=== PATIENT | male | born 1950 | race Caucasian/White ===

== ENCOUNTER 2017-01-31 07:46 | Inpatient (IN) | payer MEDICARE ==
[~2017-01-31] VITALS: Ht 182.9 cm; Wt 184.4 kg
[2017-01-31] VITALS (18 sets, daily range): BP systolic 101–137; BP diastolic 51–67
[2017-01-31] MEDS ORDERED: MIRA50TA PO (09:12)
[2017-01-31] MEDS ORDERED: CARV25TA2 PO (09:12)
[2017-01-31] MEDS ORDERED: INSU100C4 SQ (09:12)
[2017-01-31] MEDS ORDERED: INSU100I32 SQ (09:12)
[2017-01-31] MEDS ORDERED: METF10002 PO (09:12)
[2017-01-31] MEDS ORDERED: ASPI81TA2 PO (09:12)
[2017-01-31] MEDS ORDERED: DRON400T PO (09:12)
[2017-01-31] MEDS ORDERED: MAG HYDROX/ALUMINUM HYD/SIMETH 30 ML ORAL.SUSP PO PRN (09:30)
[2017-01-31] MEDS ORDERED: ONDANSETRON PF 4 MG/2 ML VIAL. IV PRN (09:30)
[2017-01-31] MEDS ORDERED: CALCIUM CARBONATE 500 MG TAB.CHEW PO PRN (09:30)
[2017-01-31] MEDS ORDERED: OXYCODONE IR 5 MG TABLET. PO PRN (09:30)
[2017-01-31] MEDS ORDERED: MORPHINE SULFATE 2 MG/ML DISP.SYRIN. IV PRN (09:30)
[2017-01-31] MEDS: IV NORMAL SALINE 1000ML BAG 1,000 ML IV SCH ×2 (09:44→17:24)
[2017-01-31] MEDS: MIRABEGRON 25 MG TAB.ER.24H PO SCH (10:00)
[2017-01-31] MEDS: DRONEDARONE HCL 400 MG TABLET PO SCH ×2 (10:00→21:00)
--- NOTE | 2017-01-31 10:09 | EKG ---
[facility] [address] [place] [address] Test Date: 2017-01-31 Test Time: 10:05:54 Pat Name: NAWAF HUBBARD Department: Room: 115 1 Gender: M Nurse Technician: HERO : 1950 Requested By: KEKE WOODRUFF Order Number: [id number] Reading MD: Measurements Intervals [place] Rate: 101 P: 45 VA: 238 QRS: -9 QRSD: 82 T: 96 QT: 338 QTc: 439 Interpretive Statements SINUS TACHYCARDIA PROLONGED VA INTERVAL LEFTWARD AXIS T ABNORMALITY IN HIGH LATERAL LEADS ABNORMAL ECG RI6.01 No previous ECG available for comparison
--- NOTE | 2017-01-31 10:20 | PDOC1 ---
History and Physical Date of Admission Date of Admission DATE: 01/31/17 TIME: 10:06 Identification/Chief Complaint Chief Complaint bloody diarrhea this AM History of Present Illness History of Present Illness 66 y.o male who has been going to for wound care of his legs, was transferred here from [facility] of active gI bleed with hemodynamic instability, BRBPR today, lots per pt, with dizziness and lightheadedness. Hgb down to 7.5 from 11,2 per rehab therapist at [place],. On antihypertensives at home and anti arrhythmics along with ASA 325, Some abd cramps too. Currently being treated for c diff (not his first episode). on PO vanc. 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, thoughts of transferring to but family and pt agreeable to stay here now Past Medical History Cardiovascular: AFIB, HTN Infectious disease: Other (c diff) Past Surgical History Past Surgical History: No pertinent history Family History Family History: No Significant Social History Smoke: No ALCOHOL: none Drugs: None Current Problem List Problem List Problems Medical Problems: (1) GI bleed Status: Acute Problems: Current Medications Current Medications Current Medications Ondansetron HCl (Zofran) 4 mg PRN Q6HRS PRN IV NAUSEA/VOMITING; Start 01/31/17 at 09:30 Al Hydroxide/Mg Hydroxide (Mylanta Plus Xs) 30 ml PRN Q3HRS PRN PO HEARTBURN / GAS; Start 01/31/17 at 09:30 Calcium Carbonate/ Glycine (Tums) 500 mg PRN Q3HRS PRN PO UPSET STOMACH; Start 01/31/17 at 09:30 Zolpidem Tartrate (Ambien) 5 mg PRN QHS PRN PO INSOMNIA, MAY REPEAT IN 1HR; Start 01/31/17 at 09:30 Oxycodone HCl (Roxicodone) 5 mg PRN Q3HRS PRN PO BREAKTHROUGH PAIN; Start 01/31 at 09:30 Morphine Sulfate 1 mg 1 mg PRN Q1HR PRN IV PAIN; Start 01/31/17 at 09:30 Sodium Chloride (Iv Sodium Chloride 0.9% 1000ml Bag) 1,000 ml @ 100 mls/hr Q10H IV Last administered on 01/31/17t 09:44; Start 01/31/17 at 09:30 Pantoprazole Sodium (Protonix Vial) 40 mg DAILYAC IVP ; Start 01/31/17 at 10:00 Dronedarone (Multaq) 400 mg BID PO ; Start 01/31/17 at 10:00 Mirabegron (Myrbetriq) 50 mg DAILY PO ; Start 01/31/17 at 10:00 Vancomycin HCl 125 mg 125 mg [id number] PO ; Start 01/31/17 at 13:00; Status UNV Metronidazole (FLAGYL 500Mmg PREMIX) 100 ml @ 100 mls/hr Q8HRS IV ; Start 01/31 at 14:00; Status UNV Active Scripts Active Reported Basaglar Kwikpen U-100 (Insulin Glargine,Hum.rec.anlog) 100 Unit/1 Ml Insuln.pen 35 Unit SQ HS Novolog (Insulin Aspart) 100 Unit/1 Ml Cartridge 35 Unit SQ TIDAC Aspirin 81 Mg Tab.chew 1 Tab PO DAILY Multaq (Dronedarone Hcl) 400 Mg Tablet 1 Tab PO BID Myrbetriq (Mirabegron) 50 Mg Tab.er.24h 50 Mg PO DAILY Carvedilol 25 Mg Tablet 80 Tab PO DAILY Metformin Hcl 1,000 Mg Tablet 1 Tab PO BID Allergies Allergies: Coded Allergies: I S O L A T I O N *CONTACT* (Verified Allergy, Unknown, 01/31/17) mrsa/c.diff No Known Medication Allergies (Verified Allergy, Unknown, 01/31/17) ROS Review of System dizzy, lightheaded, weak Gastrointestinal: Yes Abdominal Pain Skin: Yes Other (chronic lymphedema) Physical Exam General: No acute distress HEENT: Atraumatic, PERRLA Lungs: Clear to auscultation, Normal air movement Heart: S1S2, RRR, no thrills, no rubs, no gallops Cardiovascular: S1, S2 Breasts: Normal Abdomen: Soft, Other (hyperactive BS) Rectal Exam: not examined PELVIC: Nml ext genitalia Extremities: Other (chronic leg wounds, post inflammatory hyperpigmentation) Neuro: Normal gait, Normal speech, Strength at 5/5 X4 ext, Normal tone, Sensation intact, Cranial nerves 3-12 NL, Reflexes 2+ Psych/Mental Status: Mental status NL, Mood NL Vitals Vitals Vital Signs Date Time Temp Pulse Resp B/P Pulse Ox O2 Delivery O2 Flow Rate FiO2 01/31/17 09:33 106 20 115/53 100 Nasal Cannula 2.0 01/31/17 08:25 98.6 98.6 VTE Prophylaxis Ordered VTE Prophylaxis Devices: Contraindicated VTE Pharmacological Prophylaxi: Contraindicated Assessment/Plan Assessment/Plan 1. Active GI bleed, likely lower, difftls include GIB from Active c diff infection, diverticulosis 2. Hypotension 3. Symptomatic anemia 4. Precipitous drop in hemoglobin 5. C difficile, being treated 6. Chronic leg wounds and lymphedema 7. Morbid obesity with mild to mod PCM 8. HTN, now hypotensive 9. Arrhythmia (a fib? ) on anti arrhythmics PLAN NPO, IVF 100cc/hr GI consult Ct abd pelvis Check ESR COnt PO vanc Add IV flagyl Check stool for c dfiff for completion sake Hold ASA SCds only NO blood thinners or NSAIDs Hold antihypertensives MAy cont antiarrhythmics CBC eddy LAbs today baseline WOund care consult Hold PT/OT for now ICU admit Check coags Hold [facility] transfer - agreeable to stay CC 30 KEKE WOODRUFF MD Jan 31, 2017 10:20
[2017-01-31 10:32] LABS: BASO # 0.1 x10^3/uL (0.0-0.2); BASO % 1 % (0-3); EOS % 1 % (0-3); LYMPH # 2.3 x10^3/uL (1.0-4.8); LYMPH % 23 % (24-48); MEAN CORPUSCULAR HEMOGLOBIN 30 pg (25-35); MEAN CORPUSCULAR HGB CONC 33 g/dL (31-37); MEAN CORPUSCULAR VOLUME 89 fL (79-100); MONO % 14 % (0-9); NEUT % 62 % (31-73); PLATELET COUNT 175 x10^3/uL (140-400); RED BLOOD COUNT 2.31 x10^6/uL (4.30-5.70); RED CELL DISTRIBUTION WIDTH 14.8 % (11.5-14.5)
--- NOTE | 2017-01-31 10:34 | PDOC2 ---
GI CONSULT Reason For Consult: GI Bleed HPI: HPI: 66 y/o male w/ BMI 54 transferred from [facility] rehab. History from paper chart, staff, pt, and family. H/o atbx tx for chronic LE wounds and C Diff x 2 on PO vancomycin. Diarrhea has slowed (estimates 3 stools yesterday). Abd pain since 01/29 (mostly RLQ and LLQ). Since yesterday has passed bright red blood x 3 (concerning to [facility] staff), felt dizzy, and had some hypotension. No labs here yet, but from [facility]: Hgb 11.2 yesterday to 7.5 today, Bun 30, Cr 0.9. Recalls history of "low platelets" and GI bleed at in 2014 w/ extensive workup. Says EGD and colonoscopy were normal at that time. Seems suggestion was made of small bowel etiology. Perhaps took iron for awhile but can't remember. Prior to admission at [facility], had occasional constipation. Denies reflux/heartburn or change in appetite. H/o A Fib on ASA and Multaq. Takes Tylenol PRN, denies NSAIDs. On Flagyl and vanco here, also IV PPI, CT A/ P ordered. PMH: PMH: A Fib, HTN, CHF, PAD, DM, C Diff, MRSA, h/o thrombocytopenia, back pain, depression, appendectomy FH: Family History: Cancer (lung) Social History: Smoke: No ALCOHOL: none Drugs: None ROS: GEN: Denies fevers, chills, sweats HEENT: Denies blurred vision, sore throat CV: Denies chest pain RESP: +shortness of air GI: Per HPI : Denies hematuria, dysuria ENDO: Denies weight changes NEURO: +dizziness MSK: +weakness SKIN: Denies jaundice, pruritus VItals: Vitals: Vital Signs Date Time Temp Pulse Resp B/P Pulse Ox O2 Delivery O2 Flow Rate FiO2 01/31/17 09:33 106 20 115/53 100 Nasal Cannula 2.0 01/31/17 08:25 98.6 98.6 Allergies: Coded Allergies: I S O L A T I O N *CONTACT* (Verified Allergy, Unknown, 01/31/17) mrsa/c.diff No Known Medication Allergies (Verified Allergy, Unknown, 01/31/17) Medications: Current Medications Medications (Trade) Dose Ordered Sig/Ricky Route PRN Reason Start Time Stop Time Status Last Admin Dose Admin Sodium Chloride (Iv Sodium Chloride 0.9% 1000ml Bag) 1,000 ml @ 100 mls/hr Q10H IV 01/31/17 09:30 01/31/17 09:44 PE: GEN: NAD, obese HEENT: Atraumatic, PERRL LUNGS: clear anteriorly, nasal cannula HEART: tachycardic ABD: NABS, S/ND, tender RLQ, LLQ, some LUQ EXTREMITY: chronic wounds, hyperpigmentation NEURO/PSYCH: A & O 3 A/P: A/P: Hematochezia, anemia w/ hypotension, dizziness -onset w/i last 24 hours, Hgb 11.2 to 7.5 at [facility] rehab, transferred here -takes ASA for A Fib -CT A/P ordered C Diff -second occurrence, on PO vanco w/ improvement of diarrhea H/o GI bleed, thrombocytopenia -@ [facility] in 2014, reportedly no source identified on EGD or colonoscopy -plt count DM, PAD w/ chronic LE wounds -- Will request recs from [facility], review w/ Dr. Sharma. ?ischemic colitis w/ C Diff, other comorbidities Continue medical/supportive care, await CT. If unrevealing, consider bleeding scan. JENA CISNEROS Jan 31, 2017 10:34
[2017-01-31 10:43] LABS: HEMOGLOBIN 6.8 g/dL (13.0-17.5)
[2017-01-31 10:44] LABS: HEMATOCRIT 20.6 % (39.0-53.0)
[2017-01-31 10:58] LABS: INR 1.4 (0.8-1.1); PROTHROMBIN TIME PATIENT 16.5 SEC (11.7-14.0)
[2017-01-31 11:10] LABS: ALBUMIN 1.9 g/dL (3.4-5.0); CALCIUM 7.7 mg/dL (8.5-10.1); CREATININE 0.9 mg/dL (0.7-1.3); DIRECT BILIRUBIN 0.1 mg/dL (0.0-0.2); GFR 84.4; MAGNESIUM 1.7 mg/dL (1.8-2.4); PHOSPHORUS 2.6 mg/dL (2.6-4.7); TOTAL BILIRUBIN 0.5 mg/dL (0.2-1.0); TOTAL PROTEIN 5.3 g/dL (6.4-8.2)
[2017-01-31 11:12] LABS: POTASSIUM 5.3 mmol/L (3.5-5.1)
[2017-01-31] MEDS: VANCOMYCIN 125 MG/2.5 ML ORAL SOLUTION. PO SCH ×4 (11:48→21:40)
[2017-01-31] MEDS: PANTOPRAZOLE IV PUSH 40 MG VIAL. IVP SCH (11:48)
[2017-01-31] MEDS: METRONIDAZOLE 500mg PREMIX 100 ML IV SCH ×2 (11:48→21:40)
[2017-01-31 12:32] LABS: % BASOS 1 % (0-3); PLT ESTIMATE ADEQUATE (ADEQUATE)
[2017-01-31] MEDS ORDERED: IOHEXOL 300 MG/ML 75 ML VIAL IV ONE (13:15)
[2017-01-31] MEDS ORDERED: IOHEXOL 240 MG/ML 50ML VIAL. PO ONE (13:15)
[2017-01-31] MEDS ORDERED: CONTRAST GIVEN MC PRN ×2 (13:30→16:15)
[2017-01-31] MEDS ORDERED: IOHEXOL 350 MG/ML 100ML VIAL. IV ONE (16:00)
--- NOTE | 2017-01-31 17:28 | RAD ---
CTA of the abdomen and pelvis with and without contrast, 01/31/2017: History: Bloody stools Multidetector CT imaging was performed prior to and following an IV bolus injection of iodinated contrast material. The postcontrast scans were obtained in arterial and delayed phases. 3-D volume reconstructions of the aorta were also produced. The study is partially compromised by numerous streak artifacts related to patient size. There is no evidence of contrast extravasation in the GI tract to suggest active GI tract bleeding. There is mild calcific plaquing of the abdominal aorta and its branches. There is mild calcific plaquing at the celiac and superior mesenteric artery origins without evidence of high-grade stenosis. There is moderate plaquing at the right renal artery origin with probable moderate luminal narrowing. The left renal artery is unremarkable. A patent inferior mesenteric artery is evident. There is no evidence of aortic aneurysm. The iliac arteries are widely patent. Incidental CT findings include the presence of several moderate sized intrarenal calculi bilaterally. The largest of these lies on the left and measures 2 cm. There is renal cortical scarring. The kidneys show no evidence of obstruction. The bowel loops are not dilated. No free fluid or free air is evident in the abdomen or pelvis. IMPRESSION: 1. No evidence of active GI tract bleeding. 2. Bilateral nonobstructing intrarenal calculi. PQRS Compliance Statement: One or more of the following individualized dose reduction techniques were utilized for this examination: 1. Automated exposure control 2. Adjustment of the mA and/or kV according to patient size 3. Use of iterative reconstruction technique
[2017-02-01] VITALS (20 sets, daily range): BP systolic 90–177; BP diastolic 45–89
[2017-02-01 04:59] LABS: BASO # 0.1 x10^3/uL (0.0-0.2); BASO % 1 % (0-3); EOS % 1 % (0-3); HEMATOCRIT 21.8 % (39.0-53.0); HEMOGLOBIN 7.2 g/dL (13.0-17.5); LYMPH # 2.8 x10^3/uL (1.0-4.8); LYMPH % 31 % (24-48); MEAN CORPUSCULAR HEMOGLOBIN 30 pg (25-35); MEAN CORPUSCULAR HGB CONC 33 g/dL (31-37); MEAN CORPUSCULAR VOLUME 90 fL (79-100); MONO % 17 % (0-9); NEUT % 51 % (31-73); PLATELET COUNT 165 x10^3/uL (140-400); RED BLOOD COUNT 2.43 x10^6/uL (4.30-5.70); RED CELL DISTRIBUTION WIDTH 14.5 % (11.5-14.5); WHITE BLOOD COUNT 9.2 x10^3/uL (4.0-11.0)
[2017-02-01 05:34] LABS: CALCIUM 7.7 mg/dL (8.5-10.1); CREATININE 0.9 mg/dL (0.7-1.3); GFR 84.4; POTASSIUM 4.1 mmol/L (3.5-5.1)
[2017-02-01] MEDS: METRONIDAZOLE 500mg PREMIX 100 ML IV SCH ×3 (05:45→22:38)
[2017-02-01] MEDS: PANTOPRAZOLE IV PUSH 40 MG VIAL. IVP SCH (08:21)
[2017-02-01] MEDS: VANCOMYCIN 125 MG/2.5 ML ORAL SOLUTION. PO SCH ×3 (08:21→15:53)
[2017-02-01] MEDS: MUPIROCIN 2 % NASAL OINTMENT 22GM TUBE. NS SCH ×2 (08:21→20:56)
[2017-02-01] MEDS: DRONEDARONE HCL 400 MG TABLET PO SCH ×2 (08:22→20:56)
[2017-02-01] MEDS: IV NORMAL SALINE 1000ML BAG 1,000 ML IV SCH ×2 (08:22→15:30)
[2017-02-01] MEDS: NYSTATIN 100,000 UNIT/GM TOPICAL CREAM 15GM TUBE. TP SCH ×2 (08:22→20:56)
[2017-02-01] MEDS: MIRABEGRON 25 MG TAB.ER.24H PO SCH (08:22)
--- NOTE | 2017-02-01 09:07 | PDOC ---
PROGRESS NOTES Chief Complaint Chief Complaint 1. Active GI bleed, likely lower, difftls include GIB from Active c diff infection, diverticulosis 2. Hypotension, better 3. Symptomatic anemia 4. Precipitous drop in hemoglobin 5. C difficile, being treated 6. Chronic leg wounds and lymphedema 7. Morbid obesity with mild to mod PCM 8. HTN, now hypotensive 9. Arrhythmia (a fib? ) on anti arrhythmics History of Present Illness History of Present Illness Still some bloody stools - 3 yesterday NOne today but feels like he is about to have one HGb up to 7.2 from 6.8 after 1 pRBC BP better -systolic 130s, on NS at 100cc/hr C diff positive MRSA positive nares ESR 45 (mildly high) CTA done shows: IMPRESSION: 1. No evidence of active GI tract bleeding. 2. Bilateral nonobstructing intrarenal calculi. 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 - order pT/OT Vitals Vitals Vital Signs Date Time Temp Pulse Resp B/P Pulse Ox O2 Delivery O2 Flow Rate FiO2 02/01/17 08:00 98.9 82 19 120/50 96 Room Air 98.9 01/31/17 16:00 2.0 Physical Exam General: Alert, Oriented X3, Cooperative, No acute distress Heart: Regular rate Lungs: Clear Abdomen: Soft, Other (hyperactive BS) Extremities: Other (chronic leg wounds, post inflammatory hyperpigmentation) Skin: No rashes Labs LABS Laboratory Tests Test 01/31/17 10:20 01/31/17 11:30 01/31/17 12:16 02/01/17 04:50 White Blood Count 10.0x10^3/uL (4.0-11.0) 9.2x10^3/uL (4.0-11.0) Red Blood Count 2.31x10^6/uL (4.30-5.70) 2.43x10^6/uL (4.30-5.70) Hemoglobin 6.8g/dL (13.0-17.5) 7.2g/dL (13.0-17.5) Hematocrit 20.6% (39.0-53.0) 21.8% (39.0-53.0) Mean Corpuscular Volume 89fL (79-100) 90fL (79-100) Mean Corpuscular Hemoglobin 30pg (25-35) 30pg (25-35) Mean Corpuscular Hemoglobin Concent 33g/dL (31-37) 33g/dL (31-37) Red Cell Distribution Width 14.8% (11.5-14.5) 14.5% (11.5-14.5) Platelet Count 175x10^3/uL (140-400) 165x10^3/uL (140-400) Neutrophils (%) (Auto) 62% (31-73) 51% (31-73) Lymphocytes (%) (Auto) 23% (24-48) 31% (24-48) Monocytes (%) (Auto) 14% (0-9) 17% (0-9) Eosinophils (%) (Auto) 1% (0-3) 1% (0-3) Basophils (%) (Auto) 1% (0-3) 1% (0-3) Neutrophils # (Auto) 6.2x10^3uL (1.8-7.7) 4.6x10^3uL (1.8-7.7) Lymphocytes # (Auto) 2.3x10^3/uL (1.0-4.8) 2.8x10^3/uL (1.0-4.8) Monocytes # (Auto) 1.4x10^3/uL (0.0-1.1) 1.5x10^3/uL (0.0-1.1) Eosinophils # (Auto) 0.1x10^3/uL (0.0-0.7) 0.1x10^3/uL (0.0-0.7) Basophils # (Auto) 0.1x10^3/uL (0.0-0.2) 0.1x10^3/uL (0.0-0.2) Segmented Neutrophils % 72% (35-66) Band Neutrophils % 3% (0-9) Lymphocytes % 21% (24-48) Monocytes % 3% (0-10) Basophils % 1% (0-3) Platelet Estimate Adequate (ADEQUATE) Erythrocyte Sedimentation Rate 45 (0-15) Prothrombin Time 16.5SEC (11.7-14.0) Prothromb Time International Ratio 1.4 (0.8-1.1) Sodium Level 142mmol/L (136-145) 140mmol/L (136-145) Potassium Level 5.3mmol/L (3.5-5.1) 4.1mmol/L (3.5-5.1) Chloride Level 108mmol/L (98-107) 108mmol/L (98-107) Carbon Dioxide Level 27mmol/L (21-32) 27mmol/L (21-32) Anion Gap 7 (6-14) 5 (6-14) Blood Urea Nitrogen 33mg/dL (8-26) 23mg/dL (8-26) Creatinine 0.9mg/dL (0.7-1.3) 0.9mg/dL (0.7-1.3) Estimated GFR (Cockcroft-Gault) 84.4 84.4 Glucose Level 204mg/dL (70-99) 168mg/dL (70-99) Calcium Level 7.7mg/dL (8.5-10.1) 7.7mg/dL (8.5-10.1) Phosphorus Level 2.6mg/dL (2.6-4.7) Magnesium Level 1.7mg/dL (1.8-2.4) Total Bilirubin 0.5mg/dL (0.2-1.0) Direct Bilirubin 0.1mg/dL (0.0-0.2) Aspartate Amino Transf (AST/SGOT) 32U/L (15-37) Alanine Aminotransferase (ALT/SGPT) 30U/L (16-63) Alkaline Phosphatase 97U/L (46-116) Total Protein 5.3g/dL (6.4-8.2) Albumin 1.9g/dL (3.4-5.0) Clostridium difficile Toxin (PCR) Positive (Negative) Glucose (Fingerstick) 197mg/dL (70-99) Review of Systems Review of Systems bloody stools Abd cramps, minimal no emesis Assessment and Plan Assessmemt and Plan Problems Medical Problems: (1) GI bleed Status: Acute Problems: Comment Review of Relevant I have reviewed the following items ijeoma (where applicable) has been applied. Labs Laboratory Tests Test 01/31/17 08:45 01/31/17 10:20 01/31/17 11:30 01/31/17 12:16 Nasal Screen MRSA (PCR) Positive (Negative) White Blood Count 10.0x10^3/uL (4.0-11.0) Red Blood Count 2.31x10^6/uL (4.30-5.70) Hemoglobin 6.8g/dL (13.0-17.5) Hematocrit 20.6% (39.0-53.0) Mean Corpuscular Volume 89fL (79-100) Mean Corpuscular Hemoglobin 30pg (25-35) Mean Corpuscular Hemoglobin Concent 33g/dL (31-37) Red Cell Distribution Width 14.8% (11.5-14.5) Platelet Count 175x10^3/uL (140-400) Neutrophils (%) (Auto) 62% (31-73) Lymphocytes (%) (Auto) 23% (24-48) Monocytes (%) (Auto) 14% (0-9) Eosinophils (%) (Auto) 1% (0-3) Basophils (%) (Auto) 1% (0-3) Neutrophils # (Auto) 6.2x10^3uL (1.8-7.7) Lymphocytes # (Auto) 2.3x10^3/uL (1.0-4.8) Monocytes # (Auto) 1.4x10^3/uL (0.0-1.1) Eosinophils # (Auto) 0.1x10^3/uL (0.0-0.7) Basophils # (Auto) 0.1x10^3/uL (0.0-0.2) Segmented Neutrophils % 72% (35-66) Band Neutrophils % 3% (0-9) Lymphocytes % 21% (24-48) Monocytes % 3% (0-10) Basophils % 1% (0-3) Platelet Estimate Adequate (ADEQUATE) Erythrocyte Sedimentation Rate 45 (0-15) Prothrombin Time 16.5SEC (11.7-14.0) Prothromb Time International Ratio 1.4 (0.8-1.1) Sodium Level 142mmol/L (136-145) Potassium Level 5.3mmol/L (3.5-5.1) Chloride Level 108mmol/L (98-107) Carbon Dioxide Level 27mmol/L (21-32) Anion Gap 7 (6-14) Blood Urea Nitrogen 33mg/dL (8-26) Creatinine 0.9mg/dL (0.7-1.3) Estimated GFR (Cockcroft-Gault) 84.4 Glucose Level 204mg/dL (70-99) Calcium Level 7.7mg/dL (8.5-10.1) Phosphorus Level 2.6mg/dL (2.6-4.7) Magnesium Level 1.7mg/dL (1.8-2.4) Total Bilirubin 0.5mg/dL (0.2-1.0) Direct Bilirubin 0.1mg/dL (0.0-0.2) Aspartate Amino Transf (AST/SGOT) 32U/L (15-37) Alanine Aminotransferase (ALT/SGPT) 30U/L (16-63) Alkaline Phosphatase 97U/L (46-116) Total Protein 5.3g/dL (6.4-8.2) Albumin 1.9g/dL (3.4-5.0) Clostridium difficile Toxin (PCR) Positive (Negative) Glucose (Fingerstick) 197mg/dL (70-99) Test 02/01/17 04:50 White Blood Count 9.2x10^3/uL (4.0-11.0) Red Blood Count 2.43x10^6/uL (4.30-5.70) Hemoglobin 7.2g/dL (13.0-17.5) Hematocrit 21.8% (39.0-53.0) Mean Corpuscular Volume 90fL (79-100) Mean Corpuscular Hemoglobin 30pg (25-35) Mean Corpuscular Hemoglobin Concent 33g/dL (31-37) Red Cell Distribution Width 14.5% (11.5-14.5) Platelet Count 165x10^3/uL (140-400) Neutrophils (%) (Auto) 51% (31-73) Lymphocytes (%) (Auto) 31% (24-48) Monocytes (%) (Auto) 17% (0-9) Eosinophils (%) (Auto) 1% (0-3) Basophils (%) (Auto) 1% (0-3) Neutrophils # (Auto) 4.6x10^3uL (1.8-7.7) Lymphocytes # (Auto) 2.8x10^3/uL (1.0-4.8) Monocytes # (Auto) 1.5x10^3/uL (0.0-1.1) Eosinophils # (Auto) 0.1x10^3/uL (0.0-0.7) Basophils # (Auto) 0.1x10^3/uL (0.0-0.2) Sodium Level 140mmol/L (136-145) Potassium Level 4.1mmol/L (3.5-5.1) Chloride Level 108mmol/L (98-107) Carbon Dioxide Level 27mmol/L (21-32) Anion Gap 5 (6-14) Blood Urea Nitrogen 23mg/dL (8-26) Creatinine 0.9mg/dL (0.7-1.3) Estimated GFR (Cockcroft-Gault) 84.4 Glucose Level 168mg/dL (70-99) Calcium Level 7.7mg/dL (8.5-10.1) Laboratory Tests Test 01/31/17 10:20 01/31/17 11:30 01/31/17 12:16 02/01/17 04:50 White Blood Count 10.0x10^3/uL (4.0-11.0) 9.2x10^3/uL (4.0-11.0) Red Blood Count 2.31x10^6/uL (4.30-5.70) 2.43x10^6/uL (4.30-5.70) Hemoglobin 6.8g/dL (13.0-17.5) 7.2g/dL (13.0-17.5) Hematocrit 20.6% (39.0-53.0) 21.8% (39.0-53.0) Mean Corpuscular Volume 89fL (79-100) 90fL (79-100) Mean Corpuscular Hemoglobin 30pg (25-35) 30pg (25-35) Mean Corpuscular Hemoglobin Concent 33g/dL (31-37) 33g/dL (31-37) Red Cell Distribution Width 14.8% (11.5-14.5) 14.5% (11.5-14.5) Platelet Count 175x10^3/uL (140-400) 165x10^3/uL (140-400) Neutrophils (%) (Auto) 62% (31-73) 51% (31-73) Lymphocytes (%) (Auto) 23% (24-48) 31% (24-48) Monocytes (%) (Auto) 14% (0-9) 17% (0-9) Eosinophils (%) (Auto) 1% (0-3) 1% (0-3) Basophils (%) (Auto) 1% (0-3) 1% (0-3) Neutrophils # (Auto) 6.2x10^3uL (1.8-7.7) 4.6x10^3uL (1.8-7.7) Lymphocytes # (Auto) 2.3x10^3/uL (1.0-4.8) 2.8x10^3/uL (1.0-4.8) Monocytes # (Auto) 1.4x10^3/uL (0.0-1.1) 1.5x10^3/uL (0.0-1.1) Eosinophils # (Auto) 0.1x10^3/uL (0.0-0.7) 0.1x10^3/uL (0.0-0.7) Basophils # (Auto) 0.1x10^3/uL (0.0-0.2) 0.1x10^3/uL (0.0-0.2) Segmented Neutrophils % 72% (35-66) Band Neutrophils % 3% (0-9) Lymphocytes % 21% (24-48) Monocytes % 3% (0-10) Basophils % 1% (0-3) Platelet Estimate Adequate (ADEQUATE) Erythrocyte Sedimentation Rate 45 (0-15) Prothrombin Time 16.5SEC (11.7-14.0) Prothromb Time International Ratio 1.4 (0.8-1.1) Sodium Level 142mmol/L (136-145) 140mmol/L (136-145) Potassium Level 5.3mmol/L (3.5-5.1) 4.1mmol/L (3.5-5.1) Chloride Level 108mmol/L (98-107) 108mmol/L (98-107) Carbon Dioxide Level 27mmol/L (21-32) 27mmol/L (21-32) Anion Gap 7 (6-14) 5 (6-14) Blood Urea Nitrogen 33mg/dL (8-26) 23mg/dL (8-26) Creatinine 0.9mg/dL (0.7-1.3) 0.9mg/dL (0.7-1.3) Estimated GFR (Cockcroft-Gault) 84.4 84.4 Glucose Level 204mg/dL (70-99) 168mg/dL (70-99) Calcium Level 7.7mg/dL (8.5-10.1) 7.7mg/dL (8.5-10.1) Phosphorus Level 2.6mg/dL (2.6-4.7) Magnesium Level 1.7mg/dL (1.8-2.4) Total Bilirubin 0.5mg/dL (0.2-1.0) Direct Bilirubin 0.1mg/dL (0.0-0.2) Aspartate Amino Transf (AST/SGOT) 32U/L (15-37) Alanine Aminotransferase (ALT/SGPT) 30U/L (16-63) Alkaline Phosphatase 97U/L (46-116) Total Protein 5.3g/dL (6.4-8.2) Albumin 1.9g/dL (3.4-5.0) Clostridium difficile Toxin (PCR) Positive (Negative) Glucose (Fingerstick) 197mg/dL (70-99) Medications Current Medications Ondansetron HCl (Zofran) 4 mg PRN Q6HRS PRN IV NAUSEA/VOMITING; Start 01/31/17 at 09:30 Al Hydroxide/Mg Hydroxide (Mylanta Plus Xs) 30 ml PRN Q3HRS PRN PO HEARTBURN / GAS; Start 01/31/17 at 09:30 Calcium Carbonate/ Glycine (Tums) 500 mg PRN Q3HRS PRN PO UPSET STOMACH; Start 01/31/17 at 09:30 Zolpidem Tartrate (Ambien) 5 mg PRN QHS PRN PO INSOMNIA, MAY REPEAT IN 1HR; Start 01/31/17 at 09:30 Oxycodone HCl (Roxicodone) 5 mg PRN Q3HRS PRN PO BREAKTHROUGH PAIN; Start 01/31 at 09:30 Morphine Sulfate 1 mg 1 mg PRN Q1HR PRN IV PAIN; Start 01/31/17 at 09:30 Sodium Chloride (Iv Sodium Chloride 0.9% 1000ml Bag) 1,000 ml @ 100 mls/hr Q10H IV Last administered on 02/01/17 08:22; Start 01/31/17 at 09:30 Pantoprazole Sodium (Protonix Vial) 40 mg DAILYAC IVP Last administered on 02/01 08:21; Start 01/31/17 at 10:00 Dronedarone (Multaq) 400 mg BID PO ; Start 01/31/17 at 10:00 Mirabegron (Myrbetriq) 50 mg DAILY PO ; Start 01/31/17 at 10:00 Vancomycin HCl 125 mg 125 mg [id number] PO Last administered on 02/01/17 08:21; Start 01/31/17 at 10:30 Metronidazole (FLAGYL 500Mmg PREMIX) 100 ml @ 100 mls/hr Q8HRS IV Last administered on 02/01/17 05:45; Start 01/31/17 at 10:30 Iohexol (Omnipaque 300 Mg/ml) 75 ml 1X ONCE IV ; Start 01/31/17 at 13:15; Stop 01/31/17 at 13:18; Status DC Iohexol (Omnipaque 240 Mg/ml) 30 ml 1X ONCE PO ; Start 01/31/17 at 13:15; Stop 01/31/17 at 13:18; Status DC Info (Do NOT chart on this entry -- for MONITORING) 1 each PRN DAILY PRN MC SEE COMMENTS; Start 01/31/17 at 13:30; Stop 02/02/17 at 13:29; Status Cancel Iohexol (Omnipaque 350 Mg/ml) 90 ml 1X ONCE IV ; Start 01/31/17 at 16:00; Stop 01/31/17 at 16:05; Status DC Info (Do NOT chart on this entry -- for MONITORING) 1 each PRN DAILY PRN MC SEE COMMENTS; Start 01/31/17 at 16:15; Stop 02/02/17 at 16:14 Mupirocin (Bactroban) 1 savage BID NS Last administered on 02/01/17 08:21; Start 02/01/17 at 09:00 Nystatin (Mycostatin) 1 savage BID TP Last administered on 02/01/17 08:22; Start 02/01/17 at 09:00 Active Scripts Active Reported Sakinaaglar Lars U-100 (Insulin Glargine,Hum.rec.anlog) 100 Unit/1 Ml Insuln.pen 35 Unit SQ HS Novolog (Insulin Aspart) 100 Unit/1 Ml Cartridge 35 Unit SQ TIDAC Aspirin 81 Mg Tab.chew 1 Tab PO DAILY Multaq (Dronedarone Hcl) 400 Mg Tablet 1 Tab PO BID Myrbetriq (Mirabegron) 50 Mg Tab.er.24h 50 Mg PO DAILY Carvedilol 25 Mg Tablet 80 Tab PO DAILY Metformin Hcl 1,000 Mg Tablet 1 Tab PO BID Vitals/I & O Vital Sign - Last 24 Hours 01/31/17 01/31/17 01/31/17 01/31/17 09:13 09:15 09:33 10:57 Pulse 90 106 96 Resp 18 B/P 105/59 115/53 101/51 Pulse Ox 100 100 100 O2 Delivery Nasal Cannula Nasal Cannula Nasal Cannula Nasal Cannula O2 Flow Rate 2.0 2.0 2.0 2.0 01/31/17 01/31/17 01/31/17 01/31/17 11:57 12:07 14:23 14:57 Pulse 96 100 96 Resp B/P 103/55 111/58 135/52 Pulse Ox 100 98 98 O2 Delivery Nasal Cannula Nasal Cannula Nasal Cannula Room Air O2 Flow Rate 2.0 2.0 2.0 01/31/17 01/31/17 01/31/17 01/31/17 16:00 17:59 18:00 18:14 Temp 98.4 98.6 98.4 98.6 Pulse 104 108 99 Resp 18 B/P 135/52 137/67 104/66 Pulse Ox 96 O2 Delivery Room Air Room Air O2 Flow Rate 2.0 01/31/17 01/31/17 01/31/17 01/31/17 19:00 20:00 20:00 21:00 Temp 99.5 99.5 Pulse 102 105 105 Resp B/P 120/55 111/55 135/62 Pulse Ox 97 97 97 O2 Delivery Room Air Room Air Room Air Room Air 01/31/17 01/31/17 01/31/17 01/31/17 21:08 21:30 22:00 23:00 Temp 99.5 99.2 99.5 99.2 Pulse 105 102 117 100 Resp 16 B/P 135/62 124/58 134/58 109/59 Pulse Ox 98 96 O2 Delivery Room Air Room Air 01/31/17 02/01/17 02/01/17 02/01/17 23:59 00:00 01:00 02:00 Temp 98.4 98.4 Pulse 112 109 96 Resp B/P 90/49 118/57 124/45 Pulse Ox 95 98 95 O2 Delivery Room Air Room Air Room Air Room Air 02/01/17 02/01/17 02/01/17 02/01/17 03:00 04:00 04:00 05:00 Temp 98.1 98.1 Pulse 86 87 84 Resp B/P 99/48 117/63 118/54 Pulse Ox 93 93 95 O2 Delivery Room Air Room Air Room Air Room Air 02/01/17 02/01/17 02/01/17 02/01/17 06:00 07:00 08:00 08:00 Temp 98.9 98.9 Pulse 98 96 82 Resp B/P 96/51 110/60 120/50 Pulse Ox 97 95 96 O2 Delivery Room Air Room Air Room Air Room Air Intake and Output 01/31/17 01/31/17 02/01/17 15:00 23:00 07:00 Intake Total 0 ml 980 ml 1694 ml Output Total 845 ml 700 ml 825 ml Balance -845 ml 280 ml 869 ml KEKE WOODRUFF MD Feb 01, 2017 09:07
--- NOTE | 2017-02-01 10:57 | PDOC ---
Subjective: Subjective: Feeling okay. Some abd cramping prior to stooling. Objective: Objective: Per RN - 1 stool last night, just had another dark stool (not melena). Vital Signs: Vital Signs Date Time Temp Pulse Resp B/P Pulse Ox O2 Delivery O2 Flow Rate FiO2 02/01/17 10:00 81 22 118/56 96 Room Air 02/01/17 08:00 98.9 98.9 01/31/17 16:00 2.0 Labs: Laboratory Tests Test 01/31/17 11:30 01/31/17 12:16 02/01/17 04:50 Clostridium difficile Toxin (PCR) Positive Glucose (Fingerstick) 197mg/dL White Blood Count 9.2x10^3/uL Red Blood Count 2.43x10^6/uL Hemoglobin 7.2g/dL Hematocrit 21.8% Mean Corpuscular Volume 90fL Mean Corpuscular Hemoglobin 30pg Mean Corpuscular Hemoglobin Concent 33g/dL Red Cell Distribution Width 14.5% Platelet Count 165x10^3/uL Neutrophils (%) (Auto) 51% Lymphocytes (%) (Auto) 31% Monocytes (%) (Auto) 17% Eosinophils (%) (Auto) 1% Basophils (%) (Auto) 1% Neutrophils # (Auto) 4.6x10^3uL Lymphocytes # (Auto) 2.8x10^3/uL Monocytes # (Auto) 1.5x10^3/uL Eosinophils # (Auto) 0.1x10^3/uL Basophils # (Auto) 0.1x10^3/uL Sodium Level 140mmol/L Potassium Level 4.1mmol/L Chloride Level 108mmol/L Carbon Dioxide Level 27mmol/L Anion Gap 5 Blood Urea Nitrogen 23mg/dL Creatinine 0.9mg/dL Estimated GFR (Cockcroft-Gault) 84.4 Glucose Level 168mg/dL Calcium Level 7.7mg/dL Imaging: CTA A/P 01/31/17 IMPRESSION: 1. No evidence of active GI tract bleeding. 2. Bilateral nonobstructing intrarenal calculi. PE: GEN: NAD LUNGS:clear anteriorly HEART: RRR ABD: NABS, S/ND/NT, obese NEURO/PSYCH: A & O 3 A/P: Anemia, blood in stools -slowing, from red to dark -Hgb from 6.8 to 7.2 s/p 2 units pRBCs -CTA w/o bleeding C Diff -on vanco H/o GI bleed, thrombocytopenia -@ [facility] in 2014, reportedly no source identified on EGD or colonoscopy DM, PAD w/ chronic LE wounds -- Will review w/ Dr. Sharma. JENA CISNEROS Feb 01, 2017 10:57
[2017-02-02] MEDS: VANCOMYCIN 125 MG/2.5 ML ORAL SOLUTION. PO SCH ×5 (00:02→20:40)
[2017-02-02] MEDS: IV NORMAL SALINE 1000ML BAG 1,000 ML IV SCH ×2 (00:49→11:21)
[2017-02-02 03:00] VITALS: BP 118/52
[2017-02-02 04:54] LABS: HEMATOCRIT 21.9 % (39.0-53.0); HEMOGLOBIN 7.1 g/dL (13.0-17.5)
[2017-02-02] MEDS: METRONIDAZOLE 500mg PREMIX 100 ML IV SCH ×3 (06:36→20:40)
[2017-02-02 07:00] VITALS: BP 125/58
[2017-02-02] MEDS: PANTOPRAZOLE IV PUSH 40 MG VIAL. IVP SCH (08:50)
[2017-02-02] MEDS: DRONEDARONE HCL 400 MG TABLET PO SCH ×2 (08:56→20:51)
[2017-02-02] MEDS: MIRABEGRON 25 MG TAB.ER.24H PO SCH (08:57)
[2017-02-02] MEDS ORDERED: DEXTROSE 50% 25 GM / 50ML DISP.SYRIN. IV PRN (09:30)
[2017-02-02] MEDS: MUPIROCIN 2 % NASAL OINTMENT 22GM TUBE. NS SCH ×2 (09:46→20:41)
[2017-02-02] MEDS: NYSTATIN 100,000 UNIT/GM TOPICAL CREAM 15GM TUBE. TP SCH ×2 (09:47→20:39)
[2017-02-02] MEDS: COLLAGENASE 250 UNIT/GM TOPICAL OINTMENT 30GM TUBE. TP SCH (09:49)
[2017-02-02 11:00] VITALS: BP 130/69
--- NOTE | 2017-02-02 11:39 | PDOC ---
Subjective: Subjective: still with cramping, diarrhea and blood in stool Objective: Vital Signs: Vital Signs Date Time Temp Pulse Resp B/P Pulse Ox O2 Delivery O2 Flow Rate FiO2 02/02/17 08:56 94 118/52 02/02/17 03:00 97.5 18 98 Room Air 97.5 02/01/17 20:00 2.0 Labs: Laboratory Tests Test 02/01/17 21:52 02/02/17 04:13 02/02/17 10:11 Glucose (Fingerstick) 139mg/dL (70-99) 191mg/dL (70-99) Hemoglobin 7.1g/dL (13.0-17.5) Hematocrit 21.9% (39.0-53.0) Mean Corpuscular Hemoglobin Concent 32g/dL (31-37) Physical Exam: Physical Exam: GEN: NAD, obese HEENT: Atraumatic, PERRL LUNGS: clear anteriorly, nasal cannula HEART: tachycardic ABD: NABS, S/ND, tender RLQ, LLQ, some LUQ EXTREMITY: chronic wounds, hyperpigmentation NEURO/PSYCH: A & O 3 Assessment & Plan: Assessment : A/P: A/P: Hematochezia, anemia w/ hypotension, dizziness -onset w/i last 24 hours, Hgb 11.2 to 7.5 at [facility] rehab, transferred here -takes ASA for A Fib -CT A/P ordered C Diff -second occurrence, on PO vanco w/ improvement of diarrhea H/o GI bleed, thrombocytopenia -@ [facility] in 2014, reportedly no source identified on EGD or colonoscopy -plt count Suspected ischemic colitis Plan: If rebleeds, favor bleed scan Problems: EDILIA STAPLETON MD Feb 02, 2017 11:39
[2017-02-02] MEDS: INSULIN ASPART 300 UNITS/3 ML INSULN.PEN SQ SCH ×2 (12:13→16:56)
--- NOTE | 2017-02-02 12:27 | PDOC ---
PROGRESS NOTES Chief Complaint Chief Complaint 1. Active GI bleed, likely lower, difftls include GIB from Active c diff infection, diverticulosis 2. Hypotension, better 3. Symptomatic anemia 4. Precipitous drop in hemoglobin 5. C difficile, being treated 6. Chronic leg wounds and lymphedema 7. Morbid obesity with mild to mod PCM 8. HTN, now hypotensive 9. Arrhythmia (a fib? ) on anti arrhythmics plan: 1. post 2uPRBC 3. still gib, may need blood scan if cont 3. fu with GI 4. monitor hb daily 5. clear liquid, ivf 6. gippx on vanco po and flagyl iv tid for cdiff add SSI. HOLD high dose home insulin History of Present Illness History of Present Illness Still some dark stool NOne today but feels like he is about to have one HGb up to 7.1 from 6.8 after 2 pRBC BP better -systolic 130s, on NS at 100cc/hr C diff positive, loose BM better MRSA positive nares ESR 45 (mildly high) CTA done shows: neg IMPRESSION: 1. No evidence of active GI tract bleeding. 2. Bilateral nonobstructing intrarenal calculi. Findings dw patient PLAN: Keep NPO and iVF for now till GI rounds Vitals Vitals Vital Signs Date Time Temp Pulse Resp B/P Pulse Ox O2 Delivery O2 Flow Rate FiO2 02/02/17 11:00 97.5 98 18 130/69 98 Room Air 97.5 02/01/17 20:00 2.0 Physical Exam General: Alert, Oriented X3, Cooperative, No acute distress Heart: Regular rate Lungs: Clear Abdomen: Soft, Other (hyperactive BS) Extremities: Other (chronic leg wounds, post inflammatory hyperpigmentation) Skin: No rashes Labs LABS Laboratory Tests Test 02/01/17 21:52 02/02/17 04:13 02/02/17 10:11 Glucose (Fingerstick) 139mg/dL (70-99) 191mg/dL (70-99) Hemoglobin 7.1g/dL (13.0-17.5) Hematocrit 21.9% (39.0-53.0) Mean Corpuscular Hemoglobin Concent 32g/dL (31-37) Review of Systems Review of Systems no fever, chills, sob or chest pain Assessment and Plan Assessmemt and Plan Problems Medical Problems: (1) GI bleed Status: Acute Problems: Comment Review of Relevant I have reviewed the following items ijeoma (where applicable) has been applied. Labs Laboratory Tests Test 02/01/17 04:50 02/01/17 21:52 02/02/17 04:13 02/02/17 10:11 White Blood Count 9.2x10^3/uL (4.0-11.0) Red Blood Count 2.43x10^6/uL (4.30-5.70) Hemoglobin 7.2g/dL (13.0-17.5) 7.1g/dL (13.0-17.5) Hematocrit 21.8% (39.0-53.0) 21.9% (39.0-53.0) Mean Corpuscular Volume 90fL (79-100) Mean Corpuscular Hemoglobin 30pg (25-35) Mean Corpuscular Hemoglobin Concent 33g/dL (31-37) 32g/dL (31-37) Red Cell Distribution Width 14.5% (11.5-14.5) Platelet Count 165x10^3/uL (140-400) Neutrophils (%) (Auto) 51% (31-73) Lymphocytes (%) (Auto) 31% (24-48) Monocytes (%) (Auto) 17% (0-9) Eosinophils (%) (Auto) 1% (0-3) Basophils (%) (Auto) 1% (0-3) Neutrophils # (Auto) 4.6x10^3uL (1.8-7.7) Lymphocytes # (Auto) 2.8x10^3/uL (1.0-4.8) Monocytes # (Auto) 1.5x10^3/uL (0.0-1.1) Eosinophils # (Auto) 0.1x10^3/uL (0.0-0.7) Basophils # (Auto) 0.1x10^3/uL (0.0-0.2) Sodium Level 140mmol/L (136-145) Potassium Level 4.1mmol/L (3.5-5.1) Chloride Level 108mmol/L (98-107) Carbon Dioxide Level 27mmol/L (21-32) Anion Gap 5 (6-14) Blood Urea Nitrogen 23mg/dL (8-26) Creatinine 0.9mg/dL (0.7-1.3) Estimated GFR (Cockcroft-Gault) 84.4 Glucose Level 168mg/dL (70-99) Calcium Level 7.7mg/dL (8.5-10.1) Glucose (Fingerstick) 139mg/dL (70-99) 191mg/dL (70-99) Laboratory Tests Test 02/01/17 21:52 02/02/17 04:13 02/02/17 10:11 Glucose (Fingerstick) 139mg/dL (70-99) 191mg/dL (70-99) Hemoglobin 7.1g/dL (13.0-17.5) Hematocrit 21.9% (39.0-53.0) Mean Corpuscular Hemoglobin Concent 32g/dL (31-37) Medications Current Medications Ondansetron HCl (Zofran) 4 mg PRN Q6HRS PRN IV NAUSEA/VOMITING; Start 01/31/17 at 09:30 Al Hydroxide/Mg Hydroxide (Mylanta Plus Xs) 30 ml PRN Q3HRS PRN PO HEARTBURN / GAS; Start 01/31/17 at 09:30 Calcium Carbonate/ Glycine (Tums) 500 mg PRN Q3HRS PRN PO UPSET STOMACH; Start 01/31/17 at 09:30 Zolpidem Tartrate (Ambien) 5 mg PRN QHS PRN PO INSOMNIA, MAY REPEAT IN 1HR; Start 01/31/17 at 09:30 Oxycodone HCl (Roxicodone) 5 mg PRN Q3HRS PRN PO BREAKTHROUGH PAIN; Start 01/31 at 09:30 Morphine Sulfate 1 mg 1 mg PRN Q1HR PRN IV PAIN; Start 01/31/17 at 09:30 Sodium Chloride (Iv Sodium Chloride 0.9% 1000ml Bag) 1,000 ml @ 75 mls/hr [id number] IV Last administered on 02/02/17 11:21; Start 01/31/17 at 09:30 Pantoprazole Sodium (Protonix Vial) 40 mg DAILYAC IVP Last administered on 02/02 08:50; Start 01/31/17 at 10:00 Dronedarone (Multaq) 400 mg BID PO Last administered on 02/02/17 08:56; Start 01/31/17 at 10:00 Mirabegron (Myrbetriq) 50 mg DAILY PO Last administered on 02/02/17 08:57; Start 01/31/17 at 10:00 Vancomycin HCl 125 mg 125 mg [id number] PO Last administered on 02/02/17 12:09; Start 01/31/17 at 10:30 Metronidazole (FLAGYL 500Mmg PREMIX) 100 ml @ 100 mls/hr Q8HRS IV Last administered on 02/02/17 06:36; Start 01/31/17 at 10:30 Iohexol (Omnipaque 300 Mg/ml) 75 ml 1X ONCE IV ; Start 01/31/17 at 13:15; Stop 01/31/17 at 13:18; Status DC Iohexol (Omnipaque 240 Mg/ml) 30 ml 1X ONCE PO ; Start 01/31/17 at 13:15; Stop 01/31/17 at 13:18; Status DC Info (Do NOT chart on this entry -- for MONITORING) 1 each PRN DAILY PRN MC SEE COMMENTS; Start 01/31/17 at 13:30; Stop 02/02/17 at 13:29; Status Cancel Iohexol (Omnipaque 350 Mg/ml) 90 ml 1X ONCE IV ; Start 01/31/17 at 16:00; Stop 01/31/17 at 16:05; Status DC Info (Do NOT chart on this entry -- for MONITORING) 1 each PRN DAILY PRN MC SEE COMMENTS; Start 01/31/17 at 16:15; Stop 02/02/17 at 16:14 Mupirocin (Bactroban) 1 savage BID NS Last administered on 02/02/17 09:46; Start 02/01/17 at 09:00 Nystatin (Mycostatin) 1 savage BID TP Last administered on 02/02/17 09:47; Start 02/01/17 at 09:00 Collagenase (Santyl) 1 savage DAILY TP Last administered on 02/02/17 09:49; Start 02/02/17 at 09:00 Insulin Aspart (Novolog) 0-9 UNITS TIDWMEALS SQ Last administered on 02/02/17 12:13; Start 02/02/17 at 12:00 Dextrose 12.5 gm PRN Q15MIN PRN IV SEE COMMENTS; Start 02/02/17 at 09:30 Active Scripts Active Reported Tre Sousa U-100 (Insulin Glargine,Hum.rec.anlog) 100 Unit/1 Ml Insuln.pen 35 Unit SQ HS Novolog (Insulin Aspart) 100 Unit/1 Ml Cartridge 35 Unit SQ TIDAC Aspirin 81 Mg Tab.chew 1 Tab PO DAILY Multaq (Dronedarone Hcl) 400 Mg Tablet 1 Tab PO BID Myrbetriq (Mirabegron) 50 Mg Tab.er.24h 50 Mg PO DAILY Carvedilol 25 Mg Tablet 80 Mg PO DAILY Metformin Hcl 1,000 Mg Tablet 1 Tab PO BID Vitals/I & O Vital Sign - Last 24 Hours 02/01/17 02/01/17 02/01/17 02/01/17 13:00 14:00 15:00 16:00 Temp 98.6 98.6 Pulse 92 109 85 94 Resp B/P 112/55 93/50 135/61 121/59 Pulse Ox 98 98 98 97 O2 Delivery Room Air Room Air Room Air Room Air 02/01/17 02/01/17 02/01/17 02/01/17 17:00 18:26 19:30 20:00 Temp 97.5 97.7 97.5 97.7 Pulse 93 84 Resp 18 B/P 131/59 123/54 Pulse Ox 97 96 O2 Delivery Room Air Room Air Room Air Room Air O2 Flow Rate 2.0 02/01/17 02/01/17 02/02/17 02/02/17 20:56 23:59 03:00 07:00 Temp 97.7 97.5 97.8 97.7 97.5 97.8 Pulse 84 84 94 95 Resp 18 B/P 123/54 134/59 118/52 125/58 Pulse Ox 95 98 97 O2 Delivery Room Air Room Air Room Air 02/02/17 02/02/17 08:56 11:00 Temp 97.5 97.5 Pulse 94 98 Resp 18 B/P 118/52 130/69 Pulse Ox 98 O2 Delivery Room Air Intake and Output 02/01/17 02/01/17 02/02/17 15:00 23:00 07:00 Intake Total 300 ml 1140 ml Output Total 600 ml 600 ml 300 ml Balance -300 ml 540 ml -300 ml ERNA ROSA MD Feb 02, 2017 12:26
[2017-02-02] MEDS ORDERED: ONDANSETRON PF 4 MG/2 ML VIAL. IV PRN (12:30)
[2017-02-02] MEDS ORDERED: ACETAMINOPHEN 325 MG TABLET. PO PRN (12:30)
[2017-02-02 15:00] VITALS: BP 121/75
[2017-02-02 19:00] VITALS: BP 133/64
[2017-02-02 23:00] VITALS: BP 139/76
[2017-02-03] MEDS: IV NORMAL SALINE 1000ML BAG 1,000 ML IV SCH ×2 (02:17→17:01)
[2017-02-03 03:00] VITALS: BP 129/78
[2017-02-03 05:25] LABS: BASO # 0.1 x10^3/uL (0.0-0.2); BASO % 1 % (0-3); EOS % 5 % (0-3); HEMATOCRIT 22.5 % (39.0-53.0); HEMOGLOBIN 7.6 g/dL (13.0-17.5); LYMPH # 1.5 x10^3/uL (1.0-4.8); LYMPH % 25 % (24-48); MEAN CORPUSCULAR HEMOGLOBIN 31 pg (25-35); MEAN CORPUSCULAR HGB CONC 34 g/dL (31-37); MEAN CORPUSCULAR VOLUME 91 fL (79-100); MONO % 13 % (0-9); NEUT % 56 % (31-73); PLATELET COUNT 146 x10^3/uL (140-400); RED BLOOD COUNT 2.48 x10^6/uL (4.30-5.70); RED CELL DISTRIBUTION WIDTH 14.9 % (11.5-14.5); WHITE BLOOD COUNT 6.2 x10^3/uL (4.0-11.0)
[2017-02-03] MEDS: METRONIDAZOLE 500mg PREMIX 100 ML IV SCH ×3 (05:38→21:18)
[2017-02-03 07:00] VITALS: BP 151/69
[2017-02-03] MEDS ORDERED: CARV80CP PO (08:04)
[2017-02-03] MEDS: PANTOPRAZOLE IV PUSH 40 MG VIAL. IVP SCH (08:23)
[2017-02-03] MEDS: VANCOMYCIN 125 MG/2.5 ML ORAL SOLUTION. PO SCH ×4 (08:29→21:25)
[2017-02-03] MEDS: DRONEDARONE HCL 400 MG TABLET PO SCH ×2 (08:30→21:17)
[2017-02-03] MEDS: MIRABEGRON 25 MG TAB.ER.24H PO SCH (08:30)
[2017-02-03] MEDS: INSULIN ASPART 300 UNITS/3 ML INSULN.PEN SQ SCH ×3 (08:36→16:31)
[2017-02-03 10:48] VITALS: BP 147/61
[2017-02-03] MEDS: MUPIROCIN 2 % NASAL OINTMENT 22GM TUBE. NS SCH ×2 (10:57→21:17)
[2017-02-03] MEDS: COLLAGENASE 250 UNIT/GM TOPICAL OINTMENT 30GM TUBE. TP SCH (10:58)
[2017-02-03] MEDS: NYSTATIN 100,000 UNIT/GM TOPICAL CREAM 15GM TUBE. TP SCH ×2 (10:58→21:17)
--- NOTE | 2017-02-03 11:49 | PDOC ---
PROGRESS NOTES Chief Complaint Chief Complaint 1. Active GI bleed, likely lower, difftls include GIB from Active c diff infection, diverticulosis 2. Hypotension, better 3. Symptomatic anemia 4. Precipitous drop in hemoglobin 5. C difficile, being treated 6. Chronic leg wounds and lymphedema 7. Morbid obesity with mild to mod PCM 8. HTN, now hypotensive 9. Arrhythmia (a fib? ) on anti arrhythmics plan: 1. post 2uPRBC 3. still gib, may need blood scan if cont 3. fu with GI 4. monitor hb daily. asa held 5. clear liquid, ivf 6. gippx on vanco po and flagyl iv tid for cdiff add SSI. HOLD high dose home insulin History of Present Illness History of Present Illness Still some dark stool NOne today but feels like he is about to have one HGb up to 7.6, stable, post 2 u PRBC BP better -systolic 130s, on NS at 100cc/hr C diff positive, loose BM much better, one time today MRSA positive nares ESR 45 (mildly high) CTA done shows: neg IMPRESSION: 1. No evidence of active GI tract bleeding. 2. Bilateral nonobstructing intrarenal calculi. Vitals Vitals Vital Signs Date Time Temp Pulse Resp B/P Pulse Ox O2 Delivery O2 Flow Rate FiO2 02/03/17 10:48 97.5 76 18 147/61 97 Room Air 97.5 Physical Exam General: Alert, Oriented X3, Cooperative, No acute distress Heart: Regular rate Lungs: Clear Abdomen: Soft, Other (hyperactive BS) Extremities: Other (chronic leg wounds, post inflammatory hyperpigmentation) Skin: No rashes Labs LABS Laboratory Tests Test 02/02/17 16:52 02/02/17 21:01 02/03/17 04:24 02/03/17 07:32 Glucose (Fingerstick) 142mg/dL (70-99) 135mg/dL (70-99) 159mg/dL (70-99) White Blood Count 6.2x10^3/uL (4.0-11.0) Red Blood Count 2.48x10^6/uL (4.30-5.70) Hemoglobin 7.6g/dL (13.0-17.5) Hematocrit 22.5% (39.0-53.0) Mean Corpuscular Volume 91fL (79-100) Mean Corpuscular Hemoglobin 31pg (25-35) Mean Corpuscular Hemoglobin Concent 34g/dL (31-37) Red Cell Distribution Width 14.9% (11.5-14.5) Platelet Count 146x10^3/uL (140-400) Neutrophils (%) (Auto) 56% (31-73) Lymphocytes (%) (Auto) 25% (24-48) Monocytes (%) (Auto) 13% (0-9) Eosinophils (%) (Auto) 5% (0-3) Basophils (%) (Auto) 1% (0-3) Neutrophils # (Auto) 3.5x10^3uL (1.8-7.7) Lymphocytes # (Auto) 1.5x10^3/uL (1.0-4.8) Monocytes # (Auto) 0.8x10^3/uL (0.0-1.1) Eosinophils # (Auto) 0.3x10^3/uL (0.0-0.7) Basophils # (Auto) 0.1x10^3/uL (0.0-0.2) Test 02/03/17 11:31 Glucose (Fingerstick) 154mg/dL (70-99) Review of Systems Review of Systems no fever, chills, sob or chest pain Assessment and Plan Assessmemt and Plan Problems Medical Problems: (1) GI bleed Status: Acute Problems: Comment Review of Relevant I have reviewed the following items ijeoma (where applicable) has been applied. Labs Laboratory Tests Test 02/01/17 21:52 02/02/17 04:13 02/02/17 08:46 02/02/17 10:11 Glucose (Fingerstick) 139mg/dL (70-99) 171mg/dL (70-99) 191mg/dL (70-99) Hemoglobin 7.1g/dL (13.0-17.5) Hematocrit 21.9% (39.0-53.0) Mean Corpuscular Hemoglobin Concent 32g/dL (31-37) Test 02/02/17 16:52 02/02/17 21:01 02/03/17 04:24 02/03/17 07:32 Glucose (Fingerstick) 142mg/dL (70-99) 135mg/dL (70-99) 159mg/dL (70-99) White Blood Count 6.2x10^3/uL (4.0-11.0) Red Blood Count 2.48x10^6/uL (4.30-5.70) Hemoglobin 7.6g/dL (13.0-17.5) Hematocrit 22.5% (39.0-53.0) Mean Corpuscular Volume 91fL (79-100) Mean Corpuscular Hemoglobin 31pg (25-35) Mean Corpuscular Hemoglobin Concent 34g/dL (31-37) Red Cell Distribution Width 14.9% (11.5-14.5) Platelet Count 146x10^3/uL (140-400) Neutrophils (%) (Auto) 56% (31-73) Lymphocytes (%) (Auto) 25% (24-48) Monocytes (%) (Auto) 13% (0-9) Eosinophils (%) (Auto) 5% (0-3) Basophils (%) (Auto) 1% (0-3) Neutrophils # (Auto) 3.5x10^3uL (1.8-7.7) Lymphocytes # (Auto) 1.5x10^3/uL (1.0-4.8) Monocytes # (Auto) 0.8x10^3/uL (0.0-1.1) Eosinophils # (Auto) 0.3x10^3/uL (0.0-0.7) Basophils # (Auto) 0.1x10^3/uL (0.0-0.2) Test 02/03/17 11:31 Glucose (Fingerstick) 154mg/dL (70-99) Laboratory Tests Test 02/02/17 16:52 02/02/17 21:01 02/03/17 04:24 02/03/17 07:32 Glucose (Fingerstick) 142mg/dL (70-99) 135mg/dL (70-99) 159mg/dL (70-99) White Blood Count 6.2x10^3/uL (4.0-11.0) Red Blood Count 2.48x10^6/uL (4.30-5.70) Hemoglobin 7.6g/dL (13.0-17.5) Hematocrit 22.5% (39.0-53.0) Mean Corpuscular Volume 91fL (79-100) Mean Corpuscular Hemoglobin 31pg (25-35) Mean Corpuscular Hemoglobin Concent 34g/dL (31-37) Red Cell Distribution Width 14.9% (11.5-14.5) Platelet Count 146x10^3/uL (140-400) Neutrophils (%) (Auto) 56% (31-73) Lymphocytes (%) (Auto) 25% (24-48) Monocytes (%) (Auto) 13% (0-9) Eosinophils (%) (Auto) 5% (0-3) Basophils (%) (Auto) 1% (0-3) Neutrophils # (Auto) 3.5x10^3uL (1.8-7.7) Lymphocytes # (Auto) 1.5x10^3/uL (1.0-4.8) Monocytes # (Auto) 0.8x10^3/uL (0.0-1.1) Eosinophils # (Auto) 0.3x10^3/uL (0.0-0.7) Basophils # (Auto) 0.1x10^3/uL (0.0-0.2) Test 02/03/17 11:31 Glucose (Fingerstick) 154mg/dL (70-99) Medications Current Medications Ondansetron HCl (Zofran) 4 mg PRN Q6HRS PRN IV NAUSEA/VOMITING; Start 01/31/17 at 09:30 Al Hydroxide/Mg Hydroxide (Mylanta Plus Xs) 30 ml PRN Q3HRS PRN PO HEARTBURN / GAS; Start 01/31/17 at 09:30 Calcium Carbonate/ Glycine (Tums) 500 mg PRN Q3HRS PRN PO UPSET STOMACH; Start 01/31/17 at 09:30 Zolpidem Tartrate (Ambien) 5 mg PRN QHS PRN PO INSOMNIA, MAY REPEAT IN 1HR; Start 01/31/17 at 09:30 Oxycodone HCl (Roxicodone) 5 mg PRN Q3HRS PRN PO BREAKTHROUGH PAIN; Start 01/31 at 09:30 Morphine Sulfate 1 mg 1 mg PRN Q1HR PRN IV PAIN; Start 01/31/17 at 09:30 Sodium Chloride (Iv Sodium Chloride 0.9% 1000ml Bag) 1,000 ml @ 75 mls/hr [id number] IV Last administered on 02/03/17 02:17; Start 01/31/17 at 09:30 Pantoprazole Sodium (Protonix Vial) 40 mg DAILYAC IVP Last administered on 02/03 08:23; Start 01/31/17 at 10:00 Dronedarone (Multaq) 400 mg BID PO Last administered on 02/03/17 08:30; Start 01/31/17 at 10:00 Mirabegron (Myrbetriq) 50 mg DAILY PO Last administered on 02/03/17 08:30; Start 01/31/17 at 10:00 Vancomycin HCl 125 mg 125 mg [id number] PO Last administered on 02/03/17 08:29; Start 01/31/17 at 10:30 Metronidazole (FLAGYL 500Mmg PREMIX) 100 ml @ 100 mls/hr Q8HRS IV Last administered on 02/03/17 05:38; Start 01/31/17 at 10:30 Iohexol (Omnipaque 300 Mg/ml) 75 ml 1X ONCE IV ; Start 01/31/17 at 13:15; Stop 01/31/17 at 13:18; Status DC Iohexol (Omnipaque 240 Mg/ml) 30 ml 1X ONCE PO ; Start 01/31/17 at 13:15; Stop 01/31/17 at 13:18; Status DC Info (Do NOT chart on this entry -- for MONITORING) 1 each PRN DAILY PRN MC SEE COMMENTS; Start 01/31/17 at 13:30; Stop 02/02/17 at 13:29; Status Cancel Iohexol (Omnipaque 350 Mg/ml) 90 ml 1X ONCE IV ; Start 01/31/17 at 16:00; Stop 01/31/17 at 16:05; Status DC Info (Do NOT chart on this entry -- for MONITORING) 1 each PRN DAILY PRN MC SEE COMMENTS; Start 01/31/17 at 16:15; Stop 02/02/17 at 16:14; Status DC Mupirocin (Bactroban) 1 savage BID NS Last administered on 02/03/17 10:57; Start 02/01/17 at 09:00 Nystatin (Mycostatin) 1 savage BID TP Last administered on 3/26/17at 10:58; Start 02/01/17 at 09:00 Collagenase (Santyl) 1 savage DAILY TP Last administered on 02/03/17 10:58; Start 02/02/17 at 09:00 Insulin Aspart (Novolog) 0-9 UNITS TIDWMEALS SQ Last administered on 02/03/17 08:36; Start 02/02/17 at 12:00 Dextrose 12.5 gm PRN Q15MIN PRN IV SEE COMMENTS; Start 02/02/17 at 09:30 Acetaminophen (Tylenol) 650 mg PRN Q6HRS PRN PO MILD PAIN / TEMP; Start at 12:30 Ondansetron HCl (Zofran) 4 mg PRN Q6HRS PRN IV NAUSEA/VOMITING; Start 02/02/17 at 12:30 Active Scripts Active Reported Coreg Cr (Carvedilol Phosphate) 80 Mg Cpmp.24hr 80 Mg PO DAILY Basaglar Kwikpen U-100 (Insulin Glargine,Hum.rec.anlog) 100 Unit/1 Ml Insuln.pen 35 Unit SQ HS Novolog (Insulin Aspart) 100 Unit/1 Ml Cartridge 35 Unit SQ TIDAC Aspirin 81 Mg Tab.chew 1 Tab PO DAILY Multaq (Dronedarone Hcl) 400 Mg Tablet 1 Tab PO BID Myrbetriq (Mirabegron) 50 Mg Tab.er.24h 50 Mg PO DAILY Metformin Hcl 1,000 Mg Tablet 1 Tab PO BID Vitals/I & O Vital Sign - Last 24 Hours 02/02/17 02/02/17 02/02/17 02/02/17 15:00 19:00 20:24 20:51 Temp 97.5 97.7 97.5 97.7 Pulse 105 98 98 Resp 18 18 B/P 121/75 133/64 133/64 Pulse Ox 99 97 O2 Delivery Room Air Room Air Room Air 02/02/17 02/03/17 02/03/17 02/03/17 23:00 03:00 07:00 08:30 Temp 98.2 97.5 97.5 98.2 97.5 97.5 Pulse 105 82 72 72 Resp 18 18 20 B/P 139/76 129/78 151/69 151/69 Pulse Ox 97 96 96 O2 Delivery Room Air Room Air Room Air 02/03/17 10:48 Temp 97.5 97.5 Pulse 76 Resp 18 B/P 147/61 Pulse Ox 97 O2 Delivery Room Air Intake and Output 02/02/17 02/02/17 02/03/17 15:00 23:00 07:00 Intake Total 350 ml 1100 ml 820 ml Output Total 1 ml 450 ml Balance 350 ml 1099 ml 370 ml ERNA ROSA MD Feb 03, 2017 11:49
--- NOTE | 2017-02-03 11:55 | PDOC ---
Subjective: Subjective: Increased energy today Objective: Vital Signs: Vital Signs Date Time Temp Pulse Resp B/P Pulse Ox O2 Delivery O2 Flow Rate FiO2 02/03/17 10:48 97.5 76 18 147/61 97 Room Air 97.5 Labs: Laboratory Tests Test 02/02/17 16:52 02/02/17 21:01 02/03/17 04:24 02/03/17 07:32 Glucose (Fingerstick) 142mg/dL (70-99) 135mg/dL (70-99) 159mg/dL (70-99) White Blood Count 6.2x10^3/uL (4.0-11.0) Red Blood Count 2.48x10^6/uL (4.30-5.70) Hemoglobin 7.6g/dL (13.0-17.5) Hematocrit 22.5% (39.0-53.0) Mean Corpuscular Volume 91fL (79-100) Mean Corpuscular Hemoglobin 31pg (25-35) Mean Corpuscular Hemoglobin Concent 34g/dL (31-37) Red Cell Distribution Width 14.9% (11.5-14.5) Platelet Count 146x10^3/uL (140-400) Neutrophils (%) (Auto) 56% (31-73) Lymphocytes (%) (Auto) 25% (24-48) Monocytes (%) (Auto) 13% (0-9) Eosinophils (%) (Auto) 5% (0-3) Basophils (%) (Auto) 1% (0-3) Neutrophils # (Auto) 3.5x10^3uL (1.8-7.7) Lymphocytes # (Auto) 1.5x10^3/uL (1.0-4.8) Monocytes # (Auto) 0.8x10^3/uL (0.0-1.1) Eosinophils # (Auto) 0.3x10^3/uL (0.0-0.7) Basophils # (Auto) 0.1x10^3/uL (0.0-0.2) Test 02/03/17 11:31 Glucose (Fingerstick) 154mg/dL (70-99) Physical Exam: Physical Exam: Physical Exam: Physical Exam: GEN: NAD, obese HEENT: Atraumatic, PERRL LUNGS: clear anteriorly, nasal cannula HEART: tachycardic ABD: NABS, S/ND, tender RLQ, LLQ, some LUQ EXTREMITY: chronic wounds, hyperpigmentation NEURO/PSYCH: A & O 3 Assessment & Plan: Assessment : A/P: A/P: Hematochezia, anemia w/ hypotension, dizziness -onset w/i last 24 hours, Hgb 11.2 to 7.5 at [facility] rehab, transferred here -takes ASA for A Fib -CT A/P ordered C Diff -second occurrence, on PO vanco w/ improvement of diarrhea H/o GI bleed, thrombocytopenia -@ [facility] in 2014, reportedly no source identified on EGD or colonoscopy -plt count Suspected ischemic colitis Plan: If rebleeds, favor bleed scan Problems: EDILIA STAPLETON MD Feb 03, 2017 11:55
[2017-02-03 15:00] VITALS: BP 145/60
[2017-02-03 19:00] VITALS: BP 142/66
[2017-02-03] MEDS: ZOLPIDEM 5 MG TABLET. PO PRN (22:59)
[2017-02-03 23:02] VITALS: BP 129/49
[2017-02-04 02:42] VITALS: BP 141/77
[2017-02-04 05:47] LABS: BASO % 1 % (0-3); EOS % 3 % (0-3); HEMATOCRIT 22.1 % (39.0-53.0); HEMOGLOBIN 7.1 g/dL (13.0-17.5); LYMPH # 1.4 x10^3/uL (1.0-4.8); LYMPH % 26 % (24-48); MEAN CORPUSCULAR HEMOGLOBIN 30 pg (25-35); MEAN CORPUSCULAR HGB CONC 32 g/dL (31-37); MEAN CORPUSCULAR VOLUME 93 fL (79-100); MONO % 17 % (0-9); NEUT % 53 % (31-73); PLATELET COUNT 152 x10^3/uL (140-400); RED BLOOD COUNT 2.38 x10^6/uL (4.30-5.70); RED CELL DISTRIBUTION WIDTH 15.1 % (11.5-14.5); WHITE BLOOD COUNT 5.4 x10^3/uL (4.0-11.0)
[2017-02-04 05:55] LABS: CALCIUM 8.1 mg/dL (8.5-10.1); CREATININE 0.8 mg/dL (0.7-1.3); GFR 96.7; POTASSIUM 3.6 mmol/L (3.5-5.1)
[2017-02-04] MEDS: METRONIDAZOLE 500mg PREMIX 100 ML IV SCH ×3 (06:10→20:55)
[2017-02-04] MEDS: PANTOPRAZOLE IV PUSH 40 MG VIAL. IVP SCH (06:10)
[2017-02-04] MEDS: IV NORMAL SALINE 1000ML BAG 1,000 ML IV SCH ×2 (06:11→20:56)
[2017-02-04 07:15] VITALS: BP 146/80
[2017-02-04] MEDS: DRONEDARONE HCL 400 MG TABLET PO SCH ×2 (08:11→20:55)
[2017-02-04] MEDS: MIRABEGRON 25 MG TAB.ER.24H PO SCH (08:11)
[2017-02-04] MEDS: VANCOMYCIN 125 MG/2.5 ML ORAL SOLUTION. PO SCH ×4 (08:11→20:55)
[2017-02-04] MEDS: INSULIN ASPART 300 UNITS/3 ML INSULN.PEN SQ SCH ×3 (08:16→17:00)
[2017-02-04 10:25] VITALS: BP 131/58
--- NOTE | 2017-02-04 12:17 | PDOC ---
Subjective: Subjective: Concerned that Hgb 7.1 from 7.6. Had a loose stool this a.m. Unsure re: blood. Denies dizziness. Tolerating clears. Objective: Objective: Reviewed w/ staff - NO blood this morning. Vital Signs: Vital Signs Date Time Temp Pulse Resp B/P Pulse Ox O2 Delivery O2 Flow Rate FiO2 02/04/17 10:25 97.9 83 18 131/58 98 Room Air 97.9 Labs: Laboratory Tests Test 02/03/17 16:05 02/03/17 21:19 02/04/17 07:13 Glucose (Fingerstick) 142mg/dL (70-99) 129mg/dL (70-99) 158mg/dL (70-99) Imaging: CTA 01/31/17 IMPRESSION: 1. No evidence of active GI tract bleeding. 2. Bilateral nonobstructing intrarenal calculi. PE: GEN: NAD, up to chair LUNGS: CTAB HEART: RRR ABD: BS+, some BLQ tenderness, obese NEURO/PSYCH: A & O 3 A/P: Hematochezia, abd pain, anemia -Hgb remains in 7s, no further bleeding per staff C Diff -second occurrence, on PO vanco w/ improvement of diarrhea (although concerned about "loose" stool this a.m.) H/o GI bleed, thrombocytopenia -@ [facility] in 2014, reportedly no source identified on EGD or colonoscopy -- Will change to PO PPI and advanced from clears to full liquids. JENA CISNEROS Feb 04, 2017 12:17
[2017-02-04] MEDS: NYSTATIN 100,000 UNIT/GM TOPICAL CREAM 15GM TUBE. TP SCH ×2 (13:29→20:54)
[2017-02-04] MEDS: COLLAGENASE 250 UNIT/GM TOPICAL OINTMENT 30GM TUBE. TP SCH (13:29)
[2017-02-04] MEDS: MUPIROCIN 2 % NASAL OINTMENT 22GM TUBE. NS SCH ×2 (13:29→20:54)
[2017-02-04 14:15] VITALS: BP 163/78
--- NOTE | 2017-02-04 16:50 | PDOC ---
PROGRESS NOTES Chief Complaint Chief Complaint A/P 1. Hematochezia 2. Hypotension, better 5. C difficile diarrhea. 6. Chronic leg wounds and lymphedema 7. Morbid obesity with mild to mod PCM 8. HTN, now hypotensive 9. Arrhythmia (a fib? ) on anti arrhythmics Plan Hemoglobin stable at 7. 1 Diarrhea persists GI following Monitor hemoglobin monitor labs s/p prbc History of Present Illness History of Present Illness Still some dark stool NOne today but feels like he is about to have one HGb up to 7.6, stable, post 2 u PRBC BP better -systolic 130s, on NS at 100cc/hr C diff positive, loose BM much better, one time today no fever loose bowel moments no abdominal pain Vitals Vitals Vital Signs Date Time Temp Pulse Resp B/P Pulse Ox O2 Delivery O2 Flow Rate FiO2 02/04/17 14:15 97.6 85 18 163/78 98 Room Air 97.6 Physical Exam General: Alert, Oriented X3, Cooperative, No acute distress Heart: Regular rate, Normal S1 Lungs: Clear Abdomen: Soft, Other (hyperactive BS) Extremities: Other (chronic leg wounds, post inflammatory hyperpigmentation) Skin: No rashes Labs LABS Laboratory Tests Test 02/03/17 21:19 02/04/17 04:25 02/04/17 07:13 Glucose (Fingerstick) 129mg/dL (70-99) 158mg/dL (70-99) White Blood Count 5.4x10^3/uL (4.0-11.0) Red Blood Count 2.38x10^6/uL (4.30-5.70) Hemoglobin 7.1g/dL (13.0-17.5) Hematocrit 22.1% (39.0-53.0) Mean Corpuscular Volume 93fL (79-100) Mean Corpuscular Hemoglobin 30pg (25-35) Mean Corpuscular Hemoglobin Concent 32g/dL (31-37) Red Cell Distribution Width 15.1% (11.5-14.5) Platelet Count 152x10^3/uL (140-400) Neutrophils (%) (Auto) 53% (31-73) Lymphocytes (%) (Auto) 26% (24-48) Monocytes (%) (Auto) 17% (0-9) Eosinophils (%) (Auto) 3% (0-3) Basophils (%) (Auto) 1% (0-3) Neutrophils # (Auto) 2.9x10^3uL (1.8-7.7) Lymphocytes # (Auto) 1.4x10^3/uL (1.0-4.8) Monocytes # (Auto) 0.9x10^3/uL (0.0-1.1) Eosinophils # (Auto) 0.2x10^3/uL (0.0-0.7) Basophils # (Auto) 0.0x10^3/uL (0.0-0.2) Sodium Level 142mmol/L (136-145) Potassium Level 3.6mmol/L (3.5-5.1) Chloride Level 108mmol/L (98-107) Carbon Dioxide Level 26mmol/L (21-32) Anion Gap 8 (6-14) Blood Urea Nitrogen 6mg/dL (8-26) Creatinine 0.8mg/dL (0.7-1.3) Estimated GFR (Cockcroft-Gault) 96.7 Glucose Level 155mg/dL (70-99) Calcium Level 8.1mg/dL (8.5-10.1) Assessment and Plan Assessmemt and Plan Problems Medical Problems: (1) GI bleed Status: Acute Problems: Comment Review of Relevant I have reviewed the following items ijeoma (where applicable) has been applied. Labs Laboratory Tests Test 02/02/17 16:52 02/02/17 21:01 02/03/17 04:24 02/03/17 07:32 Glucose (Fingerstick) 142mg/dL (70-99) 135mg/dL (70-99) 159mg/dL (70-99) White Blood Count 6.2x10^3/uL (4.0-11.0) Red Blood Count 2.48x10^6/uL (4.30-5.70) Hemoglobin 7.6g/dL (13.0-17.5) Hematocrit 22.5% (39.0-53.0) Mean Corpuscular Volume 91fL (79-100) Mean Corpuscular Hemoglobin 31pg (25-35) Mean Corpuscular Hemoglobin Concent 34g/dL (31-37) Red Cell Distribution Width 14.9% (11.5-14.5) Platelet Count 146x10^3/uL (140-400) Neutrophils (%) (Auto) 56% (31-73) Lymphocytes (%) (Auto) 25% (24-48) Monocytes (%) (Auto) 13% (0-9) Eosinophils (%) (Auto) 5% (0-3) Basophils (%) (Auto) 1% (0-3) Neutrophils # (Auto) 3.5x10^3uL (1.8-7.7) Lymphocytes # (Auto) 1.5x10^3/uL (1.0-4.8) Monocytes # (Auto) 0.8x10^3/uL (0.0-1.1) Eosinophils # (Auto) 0.3x10^3/uL (0.0-0.7) Basophils # (Auto) 0.1x10^3/uL (0.0-0.2) Test 02/03/17 11:31 02/03/17 16:05 02/03/17 21:19 02/04/17 04:25 Glucose (Fingerstick) 154mg/dL (70-99) 142mg/dL (70-99) 129mg/dL (70-99) White Blood Count 5.4x10^3/uL (4.0-11.0) Red Blood Count 2.38x10^6/uL (4.30-5.70) Hemoglobin 7.1g/dL (13.0-17.5) Hematocrit 22.1% (39.0-53.0) Mean Corpuscular Volume 93fL (79-100) Mean Corpuscular Hemoglobin 30pg (25-35) Mean Corpuscular Hemoglobin Concent 32g/dL (31-37) Red Cell Distribution Width 15.1% (11.5-14.5) Platelet Count 152x10^3/uL (140-400) Neutrophils (%) (Auto) 53% (31-73) Lymphocytes (%) (Auto) 26% (24-48) Monocytes (%) (Auto) 17% (0-9) Eosinophils (%) (Auto) 3% (0-3) Basophils (%) (Auto) 1% (0-3) Neutrophils # (Auto) 2.9x10^3uL (1.8-7.7) Lymphocytes # (Auto) 1.4x10^3/uL (1.0-4.8) Monocytes # (Auto) 0.9x10^3/uL (0.0-1.1) Eosinophils # (Auto) 0.2x10^3/uL (0.0-0.7) Basophils # (Auto) 0.0x10^3/uL (0.0-0.2) Sodium Level 142mmol/L (136-145) Potassium Level 3.6mmol/L (3.5-5.1) Chloride Level 108mmol/L (98-107) Carbon Dioxide Level 26mmol/L (21-32) Anion Gap 8 (6-14) Blood Urea Nitrogen 6mg/dL (8-26) Creatinine 0.8mg/dL (0.7-1.3) Estimated GFR (Cockcroft-Gault) 96.7 Glucose Level 155mg/dL (70-99) Calcium Level 8.1mg/dL (8.5-10.1) Test 02/04/17 07:13 Glucose (Fingerstick) 158mg/dL (70-99) Laboratory Tests Test 02/03/17 21:19 02/04/17 04:25 02/04/17 07:13 Glucose (Fingerstick) 129mg/dL (70-99) 158mg/dL (70-99) White Blood Count 5.4x10^3/uL (4.0-11.0) Red Blood Count 2.38x10^6/uL (4.30-5.70) Hemoglobin 7.1g/dL (13.0-17.5) Hematocrit 22.1% (39.0-53.0) Mean Corpuscular Volume 93fL (79-100) Mean Corpuscular Hemoglobin 30pg (25-35) Mean Corpuscular Hemoglobin Concent 32g/dL (31-37) Red Cell Distribution Width 15.1% (11.5-14.5) Platelet Count 152x10^3/uL (140-400) Neutrophils (%) (Auto) 53% (31-73) Lymphocytes (%) (Auto) 26% (24-48) Monocytes (%) (Auto) 17% (0-9) Eosinophils (%) (Auto) 3% (0-3) Basophils (%) (Auto) 1% (0-3) Neutrophils # (Auto) 2.9x10^3uL (1.8-7.7) Lymphocytes # (Auto) 1.4x10^3/uL (1.0-4.8) Monocytes # (Auto) 0.9x10^3/uL (0.0-1.1) Eosinophils # (Auto) 0.2x10^3/uL (0.0-0.7) Basophils # (Auto) 0.0x10^3/uL (0.0-0.2) Sodium Level 142mmol/L (136-145) Potassium Level 3.6mmol/L (3.5-5.1) Chloride Level 108mmol/L (98-107) Carbon Dioxide Level 26mmol/L (21-32) Anion Gap 8 (6-14) Blood Urea Nitrogen 6mg/dL (8-26) Creatinine 0.8mg/dL (0.7-1.3) Estimated GFR (Cockcroft-Gault) 96.7 Glucose Level 155mg/dL (70-99) Calcium Level 8.1mg/dL (8.5-10.1) Medications Current Medications Ondansetron HCl (Zofran) 4 mg PRN Q6HRS PRN IV NAUSEA/VOMITING; Start 01/31/17 at 09:30; Stop 02/04/17 at 15:14; Status DC Al Hydroxide/Mg Hydroxide (Mylanta Plus Xs) 30 ml PRN Q3HRS PRN PO HEARTBURN / GAS; Start 01/31/17 at 09:30 Calcium Carbonate/ Glycine (Tums) 500 mg PRN Q3HRS PRN PO UPSET STOMACH; Start 01/31/17 at 09:30 Zolpidem Tartrate (Ambien) 5 mg PRN QHS PRN PO INSOMNIA, MAY REPEAT IN 1HR Last administered on 02/03/17t 22:59; Start 01/31/17 at 09:30 Oxycodone HCl (Roxicodone) 5 mg PRN Q3HRS PRN PO BREAKTHROUGH PAIN; Start 01/31 at 09:30 Morphine Sulfate 1 mg 1 mg PRN Q1HR PRN IV PAIN; Start 01/31/17 at 09:30 Sodium Chloride (Iv Sodium Chloride 0.9% 1000ml Bag) 1,000 ml @ 75 mls/hr [id number] IV Last administered on 02/04/17 06:11; Start 01/31/17 at 09:30 Pantoprazole Sodium (Protonix Vial) 40 mg DAILYAC IVP Last administered on 02/04 06:10; Start 01/31/17 at 10:00; Stop 02/04/17 at 12:16; Status DC Dronedarone (Multaq) 400 mg BID PO Last administered on 02/04/17 08:11; Start 01/31/17 at 10:00 Mirabegron (Myrbetriq) 50 mg DAILY PO Last administered on 02/04/17 08:11; Start 01/31/17 at 10:00 Vancomycin HCl 125 mg 125 mg [id number] PO Last administered on 02/04/17 13:29; Start 01/31/17 at 10:30 Metronidazole (FLAGYL 500Mmg PREMIX) 100 ml @ 100 mls/hr Q8HRS IV Last administered on 02/04/17 13:29; Start 01/31/17 at 10:30 Iohexol (Omnipaque 300 Mg/ml) 75 ml 1X ONCE IV ; Start 01/31/17 at 13:15; Stop 01/31/17 at 13:18; Status DC Iohexol (Omnipaque 240 Mg/ml) 30 ml 1X ONCE PO ; Start 01/31/17 at 13:15; Stop 01/31/17 at 13:18; Status DC Info (Do NOT chart on this entry -- for MONITORING) 1 each PRN DAILY PRN MC SEE COMMENTS; Start 01/31/17 at 13:30; Stop 02/02/17 at 13:29; Status Cancel Iohexol (Omnipaque 350 Mg/ml) 90 ml 1X ONCE IV ; Start 01/31/17 at 16:00; Stop 01/31/17 at 16:05; Status DC Info (Do NOT chart on this entry -- for MONITORING) 1 each PRN DAILY PRN MC SEE COMMENTS; Start 01/31/17 at 16:15; Stop 02/02/17 at 16:14; Status DC Mupirocin (Bactroban) 1 savage BID NS Last administered on 02/04/17 13:29; Start 02/01/17 at 09:00 Nystatin (Mycostatin) 1 savage BID TP Last administered on 02/04/17 13:29; Start 02/01/17 at 09:00 Collagenase (Santyl) 1 savage DAILY TP Last administered on 02/04/17 13:29; Start 02/02/17 at 09:00 Insulin Aspart (Novolog) 0-9 UNITS TIDWMEALS SQ Last administered on 02/04/17 08:16; Start 02/02/17 at 12:00 Dextrose 12.5 gm PRN Q15MIN PRN IV SEE COMMENTS; Start 02/02/17 at 09:30 Acetaminophen (Tylenol) 650 mg PRN Q6HRS PRN PO MILD PAIN / TEMP; Start at 12:30 Ondansetron HCl (Zofran) 4 mg PRN Q6HRS PRN IV NAUSEA/VOMITING; Start 02/02/17 at 12:30 Pantoprazole Sodium (Protonix) 40 mg DAILYAC PO ; Start 02/05/17 at 07:30 Active Scripts Active Reported Coreg Cr (Carvedilol Phosphate) 80 Mg Cpmp.24hr 80 Mg PO DAILY Basaglar Kwikpen U-100 (Insulin Glargine,Hum.rec.anlog) 100 Unit/1 Ml Insuln.pen 35 Unit SQ HS Novolog (Insulin Aspart) 100 Unit/1 Ml Cartridge 35 Unit SQ TIDAC Aspirin 81 Mg Tab.chew 1 Tab PO DAILY Multaq (Dronedarone Hcl) 400 Mg Tablet 1 Tab PO BID Myrbetriq (Mirabegron) 50 Mg Tab.er.24h 50 Mg PO DAILY Metformin Hcl 1,000 Mg Tablet 1 Tab PO BID Vitals/I & O Vital Sign - Last 24 Hours 02/03/17 02/03/17 02/03/17 02/03/17 19:00 19:30 21:17 23:02 Temp 97.7 97.7 97.7 97.7 Pulse 86 86 91 Resp 18 18 B/P 142/66 142/66 129/49 Pulse Ox 98 96 O2 Delivery Room Air Room Air Room Air 02/04/17 02/04/17 02/04/17 02/04/17 02:42 07:15 07:30 08:11 Temp 97.5 97.8 97.5 97.8 Pulse 90 83 83 Resp 18 18 B/P 141/77 146/80 146/80 Pulse Ox 94 96 O2 Delivery Room Air Room Air Room Air 02/04/17 02/04/17 10:25 14:15 Temp 97.9 97.6 97.9 97.6 Pulse 83 85 Resp 18 18 B/P 131/58 163/78 Pulse Ox 98 98 O2 Delivery Room Air Room Air Intake and Output 02/03/17 02/03/17 02/04/17 15:00 23:00 07:00 Intake Total 520 ml 840 ml 400 ml Balance 520 ml 840 ml 400 ml PAVAN MEJIA MD Feb 04, 2017 16:50
[2017-02-04 19:00] VITALS: BP 129/63
[2017-02-04 23:00] VITALS: BP 147/59
[2017-02-05 03:00] VITALS: BP 132/75
[2017-02-05 05:21] LABS: HEMATOCRIT 23.1 % (39.0-53.0); HEMOGLOBIN 7.4 g/dL (13.0-17.5); RED BLOOD COUNT 2.5 x10^6/uL (4.30-5.70); RED CELL DISTRIBUTION WIDTH 15.6 % (11.5-14.5); WHITE BLOOD COUNT 5.3 x10^3/uL (4.0-11.0)
[2017-02-05] MEDS: METRONIDAZOLE 500mg PREMIX 100 ML IV SCH (05:30)
[2017-02-05] MEDS: IV NORMAL SALINE 1000ML BAG 1,000 ML IV SCH ×2 (06:52→20:12)
[2017-02-05 07:00] VITALS: BP 124/70
--- NOTE | 2017-02-05 08:00 | PDOC ---
PROGRESS NOTES Chief Complaint Chief Complaint A/P 1. Hematochezia resolved. 2. Hypotension, better 5. C difficile diarrhea. 6. Chronic leg wounds and lymphedema 7. Morbid obesity with mild to mod PCM 8. HTN, now hypotensive 9. Arrhythmia (a fib? ) on anti arrhythmics Plan Hemoglobin stable at 7. 4 Diarrhea improving, Oral vancomycin Monitor hemoglobin monitor labs s/p prbc anticipated DC in am History of Present Illness History of Present Illness Still some dark stool NOne today but feels like he is about to have one HGb up to 7.6, stable, post 2 u PRBC BP better -systolic 130s, on NS at 100cc/hr C diff positive, loose BM much better, one time today no fever loose bowel moments no abdominal pain Vitals Vitals Vital Signs Date Time Temp Pulse Resp B/P Pulse Ox O2 Delivery O2 Flow Rate FiO2 02/05/17 07:00 97.7 78 16 124/70 97 Room Air 97.7 Physical Exam General: Alert, Oriented X3, Cooperative, No acute distress Heart: Regular rate, Normal S1 Lungs: Clear Abdomen: Soft, Other (hyperactive BS) Extremities: Other (chronic leg wounds, post inflammatory hyperpigmentation) Skin: No rashes Labs LABS Laboratory Tests Test 02/04/17 16:31 02/04/17 20:44 02/05/17 05:00 Glucose (Fingerstick) 135mg/dL (70-99) 141mg/dL (70-99) White Blood Count 5.3x10^3/uL (4.0-11.0) Red Blood Count 2.50x10^6/uL (4.30-5.70) Hemoglobin 7.4g/dL (13.0-17.5) Hematocrit 23.1% (39.0-53.0) Mean Corpuscular Volume 93fL (79-100) Mean Corpuscular Hemoglobin 30pg (25-35) Mean Corpuscular Hemoglobin Concent 32g/dL (31-37) Red Cell Distribution Width 15.6% (11.5-14.5) Platelet Count 167x10^3/uL (140-400) Assessment and Plan Assessmemt and Plan Problems Medical Problems: (1) GI bleed Status: Acute Problems: Comment Review of Relevant I have reviewed the following items ijeoma (where applicable) has been applied. Labs Laboratory Tests Test 02/03/17 11:31 02/03/17 16:05 02/03/17 21:19 02/04/17 04:25 Glucose (Fingerstick) 154mg/dL (70-99) 142mg/dL (70-99) 129mg/dL (70-99) White Blood Count 5.4x10^3/uL (4.0-11.0) Red Blood Count 2.38x10^6/uL (4.30-5.70) Hemoglobin 7.1g/dL (13.0-17.5) Hematocrit 22.1% (39.0-53.0) Mean Corpuscular Volume 93fL (79-100) Mean Corpuscular Hemoglobin 30pg (25-35) Mean Corpuscular Hemoglobin Concent 32g/dL (31-37) Red Cell Distribution Width 15.1% (11.5-14.5) Platelet Count 152x10^3/uL (140-400) Neutrophils (%) (Auto) 53% (31-73) Lymphocytes (%) (Auto) 26% (24-48) Monocytes (%) (Auto) 17% (0-9) Eosinophils (%) (Auto) 3% (0-3) Basophils (%) (Auto) 1% (0-3) Neutrophils # (Auto) 2.9x10^3uL (1.8-7.7) Lymphocytes # (Auto) 1.4x10^3/uL (1.0-4.8) Monocytes # (Auto) 0.9x10^3/uL (0.0-1.1) Eosinophils # (Auto) 0.2x10^3/uL (0.0-0.7) Basophils # (Auto) 0.0x10^3/uL (0.0-0.2) Sodium Level 142mmol/L (136-145) Potassium Level 3.6mmol/L (3.5-5.1) Chloride Level 108mmol/L (98-107) Carbon Dioxide Level 26mmol/L (21-32) Anion Gap 8 (6-14) Blood Urea Nitrogen 6mg/dL (8-26) Creatinine 0.8mg/dL (0.7-1.3) Estimated GFR (Cockcroft-Gault) 96.7 Glucose Level 155mg/dL (70-99) Calcium Level 8.1mg/dL (8.5-10.1) Test 02/04/17 07:13 02/04/17 16:31 02/04/17 20:44 02/05/17 05:00 Glucose (Fingerstick) 158mg/dL (70-99) 135mg/dL (70-99) 141mg/dL (70-99) White Blood Count 5.3x10^3/uL (4.0-11.0) Red Blood Count 2.50x10^6/uL (4.30-5.70) Hemoglobin 7.4g/dL (13.0-17.5) Hematocrit 23.1% (39.0-53.0) Mean Corpuscular Volume 93fL (79-100) Mean Corpuscular Hemoglobin 30pg (25-35) Mean Corpuscular Hemoglobin Concent 32g/dL (31-37) Red Cell Distribution Width 15.6% (11.5-14.5) Platelet Count 167x10^3/uL (140-400) Laboratory Tests Test 02/04/17 16:31 02/04/17 20:44 02/05/17 05:00 Glucose (Fingerstick) 135mg/dL (70-99) 141mg/dL (70-99) White Blood Count 5.3x10^3/uL (4.0-11.0) Red Blood Count 2.50x10^6/uL (4.30-5.70) Hemoglobin 7.4g/dL (13.0-17.5) Hematocrit 23.1% (39.0-53.0) Mean Corpuscular Volume 93fL (79-100) Mean Corpuscular Hemoglobin 30pg (25-35) Mean Corpuscular Hemoglobin Concent 32g/dL (31-37) Red Cell Distribution Width 15.6% (11.5-14.5) Platelet Count 167x10^3/uL (140-400) Medications Current Medications Ondansetron HCl (Zofran) 4 mg PRN Q6HRS PRN IV NAUSEA/VOMITING; Start 01/31/17 at 09:30; Stop 02/04/17 at 15:14; Status DC Al Hydroxide/Mg Hydroxide (Mylanta Plus Xs) 30 ml PRN Q3HRS PRN PO HEARTBURN / GAS; Start 01/31/17 at 09:30 Calcium Carbonate/ Glycine (Tums) 500 mg PRN Q3HRS PRN PO UPSET STOMACH; Start 01/31/17 at 09:30 Zolpidem Tartrate (Ambien) 5 mg PRN QHS PRN PO INSOMNIA, MAY REPEAT IN 1HR Last administered on 02/03/17 22:59; Start 01/31/17 at 09:30 Oxycodone HCl (Roxicodone) 5 mg PRN Q3HRS PRN PO BREAKTHROUGH PAIN; Start 01/31 at 09:30 Morphine Sulfate 1 mg 1 mg PRN Q1HR PRN IV PAIN; Start 01/31/17 at 09:30 Sodium Chloride (Iv Sodium Chloride 0.9% 1000ml Bag) 1,000 ml @ 75 mls/hr [id number] IV Last administered on 02/04/17 20:56; Start 01/31/17 at 09:30 Pantoprazole Sodium (Protonix Vial) 40 mg DAILYAC IVP Last administered on 02/04 06:10; Start 01/31/17 at 10:00; Stop 02/04/17 at 12:16; Status DC Dronedarone (Multaq) 400 mg BID PO Last administered on 02/04/17 20:55; Start 01/31/17 at 10:00 Mirabegron (Myrbetriq) 50 mg DAILY PO Last administered on 02/04/17 08:11; Start 01/31/17 at 10:00 Vancomycin HCl 125 mg 125 mg [id number] PO Last administered on 02/04/17 20:55; Start 01/31/17 at 10:30 Metronidazole (FLAGYL 500Mmg PREMIX) 100 ml @ 100 mls/hr Q8HRS IV Last administered on 02/05/17 05:30; Start 01/31/17 at 10:30 Iohexol (Omnipaque 300 Mg/ml) 75 ml 1X ONCE IV ; Start 01/31/17 at 13:15; Stop 01/31/17 at 13:18; Status DC Iohexol (Omnipaque 240 Mg/ml) 30 ml 1X ONCE PO ; Start 01/31/17 at 13:15; Stop 01/31/17 at 13:18; Status DC Info (Do NOT chart on this entry -- for MONITORING) 1 each PRN DAILY PRN MC SEE COMMENTS; Start 01/31/17 at 13:30; Stop 02/02/17 at 13:29; Status Cancel Iohexol (Omnipaque 350 Mg/ml) 90 ml 1X ONCE IV ; Start 01/31/17 at 16:00; Stop 01/31/17 at 16:05; Status DC Info (Do NOT chart on this entry -- for MONITORING) 1 each PRN DAILY PRN MC SEE COMMENTS; Start 01/31/17 at 16:15; Stop 02/02/17 at 16:14; Status DC Mupirocin (Bactroban) 1 savage BID NS Last administered on 02/04/17 20:54; Start 02/01/17 at 09:00 Nystatin (Mycostatin) 1 savage BID TP Last administered on 02/04/17 20:54; Start 02/01/17 at 09:00 Collagenase (Santyl) 1 savage DAILY TP Last administered on 02/04/17 13:29; Start 02/02/17 at 09:00 Insulin Aspart (Novolog) 0-9 UNITS TIDWMEALS SQ Last administered on 02/04/17 08:16; Start 02/02/17 at 12:00 Dextrose 12.5 gm PRN Q15MIN PRN IV SEE COMMENTS; Start 02/02/17 at 09:30 Acetaminophen (Tylenol) 650 mg PRN Q6HRS PRN PO MILD PAIN / TEMP; Start at 12:30 Ondansetron HCl (Zofran) 4 mg PRN Q6HRS PRN IV NAUSEA/VOMITING; Start 02/02/17 at 12:30 Pantoprazole Sodium (Protonix) 40 mg DAILYAC PO ; Start 02/05/17 at 07:30 Active Scripts Active Reported Coreg Cr (Carvedilol Phosphate) 80 Mg Cpmp.24hr 80 Mg PO DAILY Basaglar Kwikpen U-100 (Insulin Glargine,Hum.rec.anlog) 100 Unit/1 Ml Insuln.pen 35 Unit SQ HS Novolog (Insulin Aspart) 100 Unit/1 Ml Cartridge 35 Unit SQ TIDAC Aspirin 81 Mg Tab.chew 1 Tab PO DAILY Multaq (Dronedarone Hcl) 400 Mg Tablet 1 Tab PO BID Myrbetriq (Mirabegron) 50 Mg Tab.er.24h 50 Mg PO DAILY Metformin Hcl 1,000 Mg Tablet 1 Tab PO BID Vitals/I & O Vital Sign - Last 24 Hours 02/04/17 02/04/17 02/04/17 02/04/17 08:11 10:25 14:15 19:00 Temp 97.9 97.6 96.9 97.9 97.6 96.9 Pulse 83 83 85 89 Resp 18 18 18 B/P 146/80 131/58 163/78 129/63 Pulse Ox 98 98 97 O2 Delivery Room Air Room Air Room Air 02/04/17 02/04/17 02/04/17 02/05/17 19:10 20:55 23:00 03:00 Temp 97.7 97.7 Pulse 89 89 87 Resp 20 20 B/P 129/63 147/59 132/75 Pulse Ox 95 96 O2 Delivery Room Air 02/05/17 07:00 Temp 97.7 97.7 Pulse 78 Resp 16 B/P 124/70 Pulse Ox 97 O2 Delivery Room Air Intake and Output 02/04/17 02/04/17 02/05/17 15:00 23:00 07:00 Intake Total 1440 ml 2140 ml 400 ml Balance 1440 ml 2140 ml 400 ml PAVAN MEJIA MD Feb 05, 2017 07:59
[2017-02-05] MEDS: PANTOPRAZOLE 40 MG TABLET. PO SCH (08:01)
[2017-02-05] MEDS: INSULIN ASPART 300 UNITS/3 ML INSULN.PEN SQ SCH ×3 (08:06→17:00)
[2017-02-05] MEDS: VANCOMYCIN 125 MG/2.5 ML ORAL SOLUTION. PO SCH ×4 (09:10→22:02)
[2017-02-05] MEDS: DRONEDARONE HCL 400 MG TABLET PO SCH ×2 (09:10→22:02)
[2017-02-05] MEDS: MUPIROCIN 2 % NASAL OINTMENT 22GM TUBE. NS SCH ×2 (09:10→22:03)
[2017-02-05] MEDS: MIRABEGRON 25 MG TAB.ER.24H PO SCH (09:10)
[2017-02-05 11:10] VITALS: BP 124/54
--- NOTE | 2017-02-05 13:51 | PDOC ---
Subjective: Subjective: Wants to advance diet. No stools. No bleeding. No pain. Objective: Objective: Per RN - no bleeding, no stools today. Vital Signs: Vital Signs Date Time Temp Pulse Resp B/P Pulse Ox O2 Delivery O2 Flow Rate FiO2 02/05/17 11:10 97.9 81 16 124/54 98 Room Air 97.9 Labs: Laboratory Tests Test 02/04/17 16:31 02/04/17 20:44 02/05/17 07:56 02/05/17 10:48 Glucose (Fingerstick) 135mg/dL (70-99) 141mg/dL (70-99) 158mg/dL (70-99) 152mg/dL (70-99) PE: GEN: NAD, up to chair LUNGS: CTAB HEART: RRR ABD: NABS, S/ND/NT, obese NEURO/PSYCH: A & O 3 A/P: Hematochezia - resolved -Hgb stable in 7s, no further bleeding -on PO PPI, full liquids C Diff -second occurrence, on PO vanco w/ improvement of diarrhea (no stools yet today) H/o GI bleed, thrombocytopenia -@ [facility] in 2014, reportedly no source identified on EGD or colonoscopy -- Try GI soft for dinner, ADAT. Continue vanc, will stop IV Flagyl. JENA CISNEROS Feb 05, 2017 13:51
[2017-02-05] MEDS: NYSTATIN 100,000 UNIT/GM TOPICAL CREAM 15GM TUBE. TP SCH ×2 (14:20→22:04)
[2017-02-05] MEDS: COLLAGENASE 250 UNIT/GM TOPICAL OINTMENT 30GM TUBE. TP SCH (14:20)
[2017-02-05 15:01] VITALS: BP 161/83
[2017-02-05 19:00] VITALS: BP 151/79
[2017-02-05] MEDS: ZOLPIDEM 5 MG TABLET. PO PRN (22:03)
[2017-02-05 23:00] VITALS: BP 171/89
[2017-02-06 03:00] VITALS: BP 108/62
[2017-02-06] MEDS: PANTOPRAZOLE 40 MG TABLET. PO SCH ×2 (06:02→11:53)
[2017-02-06 07:00] VITALS: BP 102/64
[2017-02-06] MEDS: INSULIN ASPART 300 UNITS/3 ML INSULN.PEN SQ SCH ×3 (08:00→16:57)
[2017-02-06] MEDS: IV NORMAL SALINE 1000ML BAG 1,000 ML IV SCH (09:32)
[2017-02-06 11:00] VITALS: BP 129/70
[2017-02-06] MEDS: MUPIROCIN 2 % NASAL OINTMENT 22GM TUBE. NS SCH (11:57)
[2017-02-06] MEDS: NYSTATIN 100,000 UNIT/GM TOPICAL CREAM 15GM TUBE. TP SCH (11:57)
[2017-02-06] MEDS: MIRABEGRON 25 MG TAB.ER.24H PO SCH (12:15)
[2017-02-06] MEDS: VANCOMYCIN 125 MG/2.5 ML ORAL SOLUTION. PO SCH ×2 (12:16→15:00)
[2017-02-06] MEDS: DRONEDARONE HCL 400 MG TABLET PO SCH (12:16)
--- NOTE | 2017-02-06 13:35 | PDOC ---
Subjective: Subjective: Dressed to DC. No GI complaints. Objective: Vital Signs: Vital Signs Date Time Temp Pulse Resp B/P Pulse Ox O2 Delivery O2 Flow Rate FiO2 02/06/17 12:16 80 129/72 02/06/17 11:00 98.1 20 95 Room Air 98.1 Labs: Laboratory Tests Test 02/05/17 16:41 02/05/17 20:57 02/06/17 07:46 02/06/17 10:52 Glucose (Fingerstick) 146mg/dL 169mg/dL 179mg/dL 163mg/dL PE: GEN: NAD, up to chair ABD: S/ND/NT, obese NEURO/PSYCH: A & O 3 A/P: Hematochezia - resolved -Hgb stable, no further bleeding -on PO PPI, tolerating PO C Diff -second occurrence, on PO vanco H/o GI bleed, thrombocytopenia -@ [facility] in 2014, reportedly no source identified on EGD or colonoscopy -- Improved/stable per GI. Possible DC today. JENA CISNEROS Feb 06, 2017 13:35
[2017-02-06 15:00] VITALS: BP 116/69
--- NOTE | 2017-02-07 02:47 | DS ---
DATE OF DISCHARGE: 02/06/2017 DISCHARGE DIAGNOSES: 1. Hematochezia, resolved, possible due to Clostridium difficile infection. 2. ____tension, resolved. 3. Clostridium difficile diarrhea, resolving. 4. Chronic leg wounds with lymphedema. 5. Morbid obesity with mild to moderate ____. 6. ____tension, currently ____tension. 7. Questionable chronic atrial fibrillation, on Multaq. BRIEF HOSPITAL COURSE: This 66-year-old male patient admitted to the hospital for hemodynamic instability. During hospitalization, the patient noted to have some hematochezia and he was evaluated by Gastroenterology. The patient had 2 units of PRBC transfusion. Also, he had recurrent C. diff infection for which he was started on ____ vancomycin. His symptoms have been improving and today, he is hemodynamically stable to go to a [facility] facility. He was evaluated by Gastroenterology. They agreed to discharge the patient, recommend followup in 2-4 weeks. DISCHARGE PHYSICAL EXAMINATION: GENERAL: Alert, oriented x 3. HEART: S1, S2 present. LUNGS: Anterior chest clear. ABDOMEN: Soft, nontender, no organomegaly. EXTREMITIES: No edema. DISCHARGE DISPOSITION: shelter facility. DISCHARGE CONDITION: Stable. PROGNOSIS: Good. FOLLOWUP: With Gastroenterology in 2-4 weeks. MEDICATIONS: New medications: Vancomycin 125 mg p.o. q.i.d. for 10 days. Total time spent for discharge is 35 minutes for patient education, counseling and coordination of care. PAVAN MEJIA MD DR: NOREEN/elina JOB#: [id number] / [id number]
== END 2017-02-06 17:30 | DRG 372 ==
LOC: 1 WEST ICU 08:47 → 5 NORTH 02-01 17:22
PROVIDERS: ADMIT Internal Medicine; ATTEND Internal Medicine
PROC: 30233N1 Transfusion of Nonautologous Red Blood Cells into Peripheral Vein, Percutaneous Approach (ICD-10-PCS; principal; 2017-01-31)
DX: A04.7 Enterocolitis due to Clostridium difficile (principal); E44.0 Moderate protein-calorie malnutrition; Z68.43 Body mass index [BMI] 50.0-59.9, adult; D64.9 Anemia, unspecified; E11.9 Type 2 diabetes mellitus without complications; E66.01 Morbid (severe) obesity due to excess calories; I11.0 Hypertensive heart disease with heart failure; I48.91 Unspecified atrial fibrillation; F32.9 Major depressive disorder, single episode, unspecified; I50.9 Heart failure, unspecified; I89.0 Lymphedema, not elsewhere classified; K57.90 Diverticulosis of intestine, part unspecified, without perforation or abscess without bleeding; K59.00 Constipation, unspecified; N20.0 Calculus of kidney; Z79.82 Long term (current) use of aspirin; Z80.1 Family history of malignant neoplasm of trachea, bronchus and lung
CPT/HCPCS: 36415; 74174; 80048; 80076; 82947; 83735; 84100; 85007; 85014; 85018; 85027; 85610; 85651; 86850; 86900; 86901; 86920; 87324; 87641; 93005; C9113; J0775; J1815; J3490; J7030; P9016; 97110; 97116; 97535